=== PATIENT | female | born 1955 | race Caucasian/White ===

== ENCOUNTER 2023-10-02 13:45 | Outpatient (RCR) | payer MEDICARE, OTHER, SELFPAY ==
--- NOTE | 2023-06-11 19:21 | PT.OIE ---
Current Diagnoses Stiffness of unspecified hip, not elsewhere classified (06/11/23) Muscle weakness (generalized) (06/11/23) Stress incontinence (female) (male) (06/11/23) Rectocele (06/11/23) Visit Care Team Role Provider Type Colin Esposito MD Family Provider Non-Staff Primary Care Provider Specialty: Family Practice Address: [address] [place] [address], [phone] Email: Ghulam Florence MD Attending Provider Non-Staff Referring Provider Specialty: Medical Address: [address] [place] [address], [id number] Email: Physical Therapy Initial Evaluation PT-OP-A Visit Information Start: 06/05/23 17:53 Freq: Status: Active Protocol: Document 06/11/23 13:47 LRN (Rec: 06/11/23 14:46 LRN [id number]) Out-Patient Physical Therapy Visit Information Visit Information Visit Type Initial Evaluation Visit Start Time 13:47 Visit Stop Time 14:35 Visit Number 1 Evaluation Information Evaluation Date 06/11/23 Precautions Precautions Severe rectocele stage 4. Per intake form: R HETAL after Cystocele repair 15 yrs ago, 2019 Gall bladder removed, reported sporadic dizziness episodes and LOB w/o fall. PT-OP-B Current Condition Start: 06/05/23 17:53 Freq: Status: Active Protocol: Document 06/11/23 13:47 LRN (Rec: 06/11/23 14:46 LRN [id number]) Current Condition History of Current Condition Onset Date 6 months ago, History of Current Condition Has had urinary leakage for past 6 month that has worsened in the past 3 month. She thinks she may have been having cystocele, but was told she had a rectocele, not cystocele; therefore sent to therapy. She is being referred to gynocologist for rectal repair, referral appt 06/25/23. Prior Treatments and Tests Cystocele repair 15 yrs ago w/ hyste before that and R HETAL replacement afterward. Future Testing and Treatments Planned Feels her L hip needs a replacement but is getting rectocele addressed first. Treatment Goals Patient/Caregiver Goals Pt goal is to decrease rectocele, pt agreeable to HEP . Personal Factors Other Personal Factors That May Effect Having sporadic episodes of Therapy/Recovery dizziness and LOB. PT-OP-C Subjective Start: 06/05/23 17:53 Freq: Status: Active Protocol: Document 06/11/23 13:47 LRN (Rec: 06/11/23 14:46 LRN [id number]) Patient Questionnaires Pelvic Pain and Urgency/Frequency Patient Symptom Scale Pelvic Pain Score 12 PT-OP-I Pelvic Floor Start: 06/05/23 17:53 Freq: Status: Active Protocol: Document 06/11/23 13:47 LRN (Rec: 06/11/23 14:46 LRN [id number]) Pelvic Floor Assessment Urine Urinary Symptoms Prolapse,Falling Out Feeling/ Heavy Other Urinary Symptoms Urologist told her she was not completely emptying. Leakage Size Large Leakage Cause Urge Other Leakage Causes Walking to bathroom and leakage while sleeping Voiding Frequency 3x in AM, 3-4x in PM Nocturia 2-3 Pads Used In 24 Hours 1 daytime, 1 nighttime. Urine Pad Type Panty Liner Bowel Bowel Symptoms Constipation Bowel Movement Frequency 1 [place] Stool Chart Comments Variable stool types. Prolapse Rectocele Grade 4 Prolapse Comments Pt rectocele bulging out ~5 cm from vaginal opening. Comments Pelvic Floor Comments Not able to assess PF contractibility and strength due to severity of cystocele. Further bulging with each PF contraction while on a wedge. PT-OP-J Posture/Palpation/Skin Start: 06/05/23 17:53 Freq: Status: Active Protocol: Document 06/11/23 13:47 LRN (Rec: 06/11/23 14:46 LRN [id number]) Posture Evaluation Position Standing T-Spine Posture Increased Kyphosis L-Spine Posture Decreased Lordosis Shoulder Posture (L) Elevated Ankle/Foot Posture (L) Calcaneal Inversion,(L) Forefoot Abducted Comments Posture Comments C-curve of spine with apex on left. PT-OP-K Range of Motion Start: 06/05/23 17:53 Freq: Status: Active Protocol: Document 06/11/23 13:47 LRN (Rec: 06/11/23 14:46 LRN [id number]) Lumbar Spine Range of Motion Lumbar Spine Active Degrees Testing Position Standing Flexion 80 Extension 3 Rotation Left 5 Rotation Right 10 Lateral Flexion Left 10 Lateral Flexion Right 7 Hip Goniometric Range of Motion Hip Right Passive Testing Position Supine Flexion w/Knee Flexed 80 Abduction 18 Internal Rotation 15 External Rotation 25 Comments R HETAL side Left Passive Testing Position Supine Flexion w/Knee Flexed 90 Abduction 10 Internal Rotation 0 External Rotation 45 PT-OP-M Strength Start: 06/05/23 17:53 Freq: Status: Active Protocol: Document 06/11/23 13:47 LRN (Rec: 06/11/23 14:46 LRN [id number]) Trunk Strength Trunk Manual Muscle Testing Core Stabilization 4/5 Hip Strength Hip Manual Muscle Testing Right Flexion (L2) 2+ Poor+ External Rotation 3 Fair Internal Rotation 4 Good Left Flexion (L2) 3- Fair- Internal Rotation 4 Good PT-OP-Q Treatments Start: 06/05/23 17:53 Freq: Status: Active Protocol: Document 06/11/23 13:47 LRN (Rec: 06/11/23 14:46 LRN [id number]) Self-Care/Home Management Treatment Education Patient Education Home Exercise Program Other Education -Discussed results of evaluation, goals, and plan of care (POC) with pt, discussed attendance/cx/dns policy; pt agreeable to goals, attendance /cx/dns policy and POC. -With mirror, educated pt in physical positioning of rectocele with pt on wedge and after rectocele pushed back into vaginal canal leaving ~ 2 cm bulging beyond hymen location. -With mirror, educated pt rectocele bulging with increase in core pressure ( cough, PF contraction). -I/S pt in light cough to minimize rectocele bulge. -Verbal education for pt to not push with BM's but to breath through BM and if possible splint through vaginal canal with clean fingers if bulge not severe. -Discussed options for helping to limit rectocele with use of femme jock while waiting for appt for rectocele repair. Activities Self-Care/Home Management Activities -I/S pt in gentle PF contraction with hips elevated and to monitor for bulge. -Issued HEP: Kegel long hold with hips on pillows. PT-OP-T Assessment and Plan Start: 06/05/23 17:53 Freq: Status: Active Protocol: Document 06/11/23 13:47 LRN (Rec: 06/11/23 14:46 LRN [id number]) Physical Therapy Assessment Rehab Potential Rehabilitation Potential Poor Evaluation Complexity Number of Personal Factors/Comorbidities 1-2 Number of Body Systems Impaired 4 or More Clinical Presentation at Evaluation Evolving Impairments Impairments Coordination,Posture,ROM,Soft Tissue Mobility,Strength, Transfers Goals Three Impairment Weak Posterior PF muscles affecting urinary leakage. Impairment srengthen muscles that are there to contol leakage. Short Term Goal (STG) PF will gain awareness of posterior PF weakness and positions to limiting bulging of rectocele. STG Duration 2 wks-06/23/23 Two Impairment Increased urinary leakage. Short Term Goal (STG) Pt will be educated in vulvar/ genital care. STG Duration 1 wk-06/19/23 [place] Goal (LTG) Pt will be aware of voiding frequency and fluid input/ outputs to decrease worsening of urinary leakage. LTG Duration 8 wks-08/08/23 One Impairment Pt lacks appropriate self care HEP. Short Term Goal (STG) Education in proper methods for transfer with coordination of breathing, PF contractions . STG Duration 1 wk-06/19/23 [place] Hand Goal (LTG) Pt will be independent with a self care HEP of PF strengthening and hip ROM exercises. LTG Duration 8 wks-08/08/23 Assessment Summary Assessment Pt is a 67 yo female who presents with severe rectocele , grade 4. Not able to draw rectocele back into vaginal canal with positioning of wedge. Pt demonstrates greater bulging with cough and PF contractions due to increased core pressure management. The pt is also shows notable asymmetry of hip mobility and breath holding tactics for transfers. She also is reporting pushing to have bowel movements, probably worsening her rectocele. The pt will need surgical consult and has appointment at , reportedly 06/25/23. The pt will benefit from skilled physical therapy to teach her core pressure management with Kegels, transfers, daily activities, coughing/sneezing/ lifting and with daily ADLs. The pt could also benefit from hip mobility ad postural training. Physical Therapy Plan Frequency and Duration Frequency of Treatment 2x/Week Duration of treatment (weeks) 8 Plan of Care Start Date 06/11/23 Plan of Care End Date 08/08/23 Therapeutic Interventions Therapeutic Interventions Home Exercise Program,Manual Therapy,Self-Care/Home Management,Soft Tissue Mobilization,Therapeutic Activities,Therapeutic Exercises Next Visit Focus/Plan Next Note Type Treatment Note Next Visit Plan 1-2x/wk until 06/24/23 ( appt ). Discuss continuation until surgical date. Pt education and discussion of how to have Bowel movements without valsa maneuver and discuss squatty potty. Discuss norms for fluids to minimize onset of constipation . Pt education proper vulvar and perineal care with handout issued. Pt education and discussion in Urinary urge technique with handout and discuss positioning (sup/standing) for changing severity of rectocele. PF strengthening on wedge.
--- NOTE | 2023-06-11 19:21 | PT.OPPOC ---
Physical, Occupational & Speech Therapy At [facility] Current Diagnoses Stiffness of unspecified hip, not elsewhere classified (06/11/23) Muscle weakness (generalized) (06/11/23) Stress incontinence (female) (male) (06/11/23) Rectocele (06/11/23) Visit Care Team Role Provider Type Colin Esposito MD Family Provider Non-Staff Primary Care Provider Specialty: Family Practice Address: [address] [place] [address], [id number] Email: Ghulam Florence MD Attending Provider Non-Staff Referring Provider Specialty: Medical Address: [address] [place] [address], [id number] Email: Plan Of Care PT-OP-T Assessment and Plan Start: 06/05/23 17:53 Freq: Status: Active Protocol: Document 06/11/23 13:47 LRN (Rec: 06/11/23 14:46 LRN [id number]) Physical Therapy Assessment Rehab Potential Rehabilitation Potential Poor Evaluation Complexity Number of Personal Factors/Comorbidities 1-2 Number of Body Systems Impaired 4 or More Clinical Presentation at Evaluation Evolving Impairments Impairments Coordination,Posture,ROM,Soft Tissue Mobility,Strength, Transfers Goals Three Impairment Weak Posterior PF muscles affecting urinary leakage. Impairment srengthen muscles that are there to contol leakage. Short Term Goal (STG) PF will gain awareness of posterior PF weakness and positions to limiting bulging of rectocele. STG Duration 2 wks-06/23/23 Two Impairment Increased urinary leakage. Short Term Goal (STG) Pt will be educated in vulvar/ genital care. STG Duration 1 wk-06/19/23 [place] Steep Tender Goal (LTG) Pt will be aware of voiding frequency and fluid input/ outputs to decrease worsening of urinary leakage. LTG Duration 8 wks-08/08/23 One Impairment Pt lacks appropriate self care HEP. Short Term Goal (STG) Education in proper methods for transfer with coordination of breathing, PF contractions . STG Duration 1 wk-06/19/23 Skilled Nursing Goal (LTG) Pt will be independent with a self care HEP of PF strengthening and hip ROM exercises. LTG Duration 8 wks-08/08/23 Assessment Summary Assessment Pt is a 67 yo female who presents with severe rectocele , grade 4. Not able to draw rectocele back into vaginal canal with positioning of wedge. Pt demonstrates greater bulging with cough and PF contractions due to increased core pressure management. The pt is also shows notable asymmetry of hip mobility and breath holding tactics for transfers. She also is reporting pushing to have bowel movements, probably worsening her rectocele. The pt will need surgical consult and has appointment at , reportedly 06/25/23. The pt will benefit from skilled physical therapy to teach her core pressure management with Kegels, transfers, daily activities, coughing/sneezing/ lifting and with daily ADLs. The pt could also benefit from hip mobility ad postural training. Physical Therapy Plan Frequency and Duration Frequency of Treatment 2x/Week Duration of treatment (weeks) 8 Plan of Care Start Date 06/11/23 Plan of Care End Date 08/08/23 Therapeutic Interventions Therapeutic Interventions Home Exercise Program,Manual Therapy,Self-Care/Home Management,Soft Tissue Mobilization,Therapeutic Activities,Therapeutic Exercises Next Visit Focus/Plan Next Note Type Treatment Note Next Visit Plan 1-2x/wk until 06/24/23 ( appt ). Discuss continuation until surgical date. Pt education and discussion of how to have Bowel movements without valsa maneuver and discuss squatty potty. Discuss norms for fluids to minimize onset of constipation . Pt education proper vulvar and perineal care with handout issued. Pt education and discussion in Urinary urge technique with handout and discuss positioning (sup/standing) for changing severity of rectocele. PF strengthening on wedge. Plan of Care Dates Plan of Care Start Date 06/11/23 Plan of Care End Date 08/08/23 Electronically Signed by: Sarina Keenan, PT 06/11/231920 If you are in agreement with this Plan of Care, please return a signed and dated copy. I have reviewed this Plan of Care and certify that the skilled therapy services above are required to meet the patient?s needs. Physician Signature Date Printed Name and Credentials Clinical Instructor Signature Printed Name and Credentials
--- NOTE | 2023-06-18 15:13 | PT.OTN ---
Current Diagnoses Stiffness of unspecified hip, not elsewhere classified (06/18/23) Muscle weakness (generalized) (06/18/23) Stress incontinence (female) (male) (06/18/23) Rectocele (06/18/23) Physical Therapy Treatment Note PT-OP-A Visit Information Start: 06/05/23 17:53 Freq: Status: Active Protocol: Document 06/18/23 13:50 LRN (Rec: 06/18/23 15:12 LRN [id number]) Out-Patient Physical Therapy Visit Information Visit Information Visit Type Treatment Note Visit Start Time 13:50 Visit Stop Time 14:38 Visit Number 2 Evaluation Information Evaluation Date 06/11/23 Precautions Precautions Severe rectocele stage 4. Per intake form: R HETAL after Cystocele repair 15 yrs ago, 2019 Gall bladder removed, reported sporadic dizziness episodes and LOB w/o fall. PT-OP-B Current Condition Start: 06/05/23 17:53 Freq: Status: Active Protocol: Document 06/11/23 13:47 LRN (Rec: 06/11/23 14:46 LRN [id number]) Current Condition History of Current Condition Onset Date 6 months ago, History of Current Condition Has had urinary leakage for past 6 month that has worsened in the past 3 month. She thinks she may have been having cystocele, but was told she had a rectocele, not cystocele; therefore sent to therapy. She is being referred to gynocologist for rectal repair, referral appt 06/25/23. Prior Treatments and Tests Cystocele repair 15 yrs ago w/ hyste before that and R HETAL replacement afterward. Future Testing and Treatments Planned Feels her L hip needs a replacement but is getting rectocele addressed first. Treatment Goals Patient/Caregiver Goals Pt goal is to decrease rectocele, pt agreeable to HEP . Personal Factors Other Personal Factors That May Effect Having sporadic episodes of Therapy/Recovery dizziness and LOB. PT-OP-C Subjective Start: 06/05/23 17:53 Freq: Status: Active Protocol: Document 06/18/23 13:50 LRN (Rec: 06/18/23 15:12 LRN [id number]) OP-PT Subjective Patient Comments Patient Comments No changes. Ordered the femjock. States it doesn't feel it is too tight. PT-OP-I Pelvic Floor Start: 03/22/24 17:53 Freq: Status: Active Protocol: Document 06/11/23 13:47 LRN (Rec: 06/11/23 14:46 LRN [id number]) Pelvic Floor Assessment Urine Urinary Symptoms Prolapse,Falling Out Feeling/ Heavy Other Urinary Symptoms Urologist told her she was not completely emptying. Leakage Size Large Leakage Cause Urge Other Leakage Causes Walking to bathroom and leakage while sleeping Voiding Frequency 3x in AM, 3-4x in PM Nocturia 2-3 Pads Used In 24 Hours 1 daytime, 1 nighttime. Urine Pad Type Panty Liner Bowel Bowel Symptoms Constipation Bowel Movement Frequency 1 [place] Stool Chart Comments Variable stool types. Prolapse Rectocele Grade 4 Prolapse Comments Pt rectocele bulging out ~5 cm from vaginal opening. Comments Pelvic Floor Comments Not able to assess PF contractibility and strength due to severity of cystocele. Further bulging with each PF contraction while on a wedge. PT-OP-J Posture/Palpation/Skin Start: 06/05/23 17:53 Freq: Status: Active Protocol: Document 06/11/23 13:47 LRN (Rec: 06/11/23 14:46 LRN [id number]) Posture Evaluation Position Standing T-Spine Posture Increased Kyphosis L-Spine Posture Decreased Lordosis Shoulder Posture (L) Elevated Ankle/Foot Posture (L) Calcaneal Inversion,(L) Forefoot Abducted Comments Posture Comments C-curve of spine with apex on left. PT-OP-K Range of Motion Start: 06/05/23 17:53 Freq: Status: Active Protocol: Document 06/11/23 13:47 LRN (Rec: 06/11/23 14:46 LRN [id number]) Lumbar Spine Range of Motion Lumbar Spine Active Degrees Testing Position Standing Flexion 80 Extension 3 Rotation Left 5 Rotation Right 10 Lateral Flexion Left 10 Lateral Flexion Right 7 Hip Goniometric Range of Motion Hip Right Passive Testing Position Supine Flexion w/Knee Flexed 80 Abduction 18 Internal Rotation 15 External Rotation 25 Comments R HETAL side Left Passive Testing Position Supine Flexion w/Knee Flexed 90 Abduction 10 Internal Rotation 0 External Rotation 45 PT-OP-M Strength Start: 06/05/23 17:53 Freq: Status: Active Protocol: Document 06/11/23 13:47 LRN (Rec: 06/11/23 14:46 LRN [id number]) Trunk Strength Trunk Manual Muscle Testing Core Stabilization 4/5 Hip Strength Hip Manual Muscle Testing Right Flexion (L2) 2+ Poor+ External Rotation 3 Fair Internal Rotation 4 Good Left Flexion (L2) 3- Fair- Internal Rotation 4 Good PT-OP-Q Treatments Start: 06/05/23 17:53 Freq: Status: Active Protocol: Document 06/18/23 13:50 LRN (Rec: 06/18/23 15:12 LRN [id number]) Therapeutic Exercises Supine Exercises Wedge: Roll in-out/Kegel Reps/Minutes until rectocele bulged more, then stopped to rest/ reposition. Comments Cuing for Kegel with inhale and with inhale/exhale Wedge: Roll in/out Supine Exercise Name Legs straight & Hooklie w/TB - normal breath Reps/Minutes 5x, 10x respectively. Comments Better rectocele retract in hooklie w/TB. Cuing for w/ & w/o Kegel Wedge: Kegel/Glut squeeze Supine Exercise Name 10, 20, 30% effort with Kegel and glut squeeze Reps/Minutes 2-5x each Comments Reps depending on if PF bulging out or not, best with 30% effort. Wedge: Breathing Supine Exercise Name Deep breath, normal breath, chest breath. Reps/Minutes 5x each Comments Much cuing for PF lift with exhale and PF contract w/ inhale Wedge: Glut squeeze Reps/Minutes 2 SH x 10 Comments Cued after 100% effort to do 10%, 20%, then 30% effort Wedge: Kegel Supine Exercise Name Bowels moved 80% into vaginal canal. Reps/Minutes 8x Comments Cued for lift of PF Other Exercises Hooklie on Wedge Other Exercise Name Breathing training to coordinate PF normal contract/ relax Equipment Used Wedge Comments Pt awareness trng/cuing for PF lift with inhale, out w/ exhale Neuro Re-Education Treatment Coordination Activities Transfers coodinating w/breath & Kegel Details Transfers stand<>sit<>sidelie< >sup, coodinating w/breath & Kegel Reps/Duration 8' Comments V & Phys cuing throughout transfers for coordination of activity of breathing and Kegel. Self-Care/Home Management Treatment Education Other Education Discussed & educated pt in clothes to avoid (tight fitting around waist) and recommended pt try a dress to minimize intra-abdominal pressure and further pushing out on PF. PT-OP-T Assessment and Plan Start: 06/05/23 17:53 Freq: Status: Active Protocol: Document 06/18/23 13:50 LRN (Rec: 06/18/23 15:12 LRN [id number]) Physical Therapy Assessment Goals Three Impairment Weak Posterior PF muscles affecting urinary leakage. Impairment srengthen muscles that are there to contol leakage. Short Term Goal (STG) PF will gain awareness of posterior PF weakness and positions to limiting bulging of rectocele. 06/18/23: Educated pt in positions to limit rectocel bulging: not lift head or legs together, not hold breath and not tighten abs w/o tighening PF. STG Duration 2 wks-06/23/23 progressing 06/18/23 (PF weakness awareness needed) Two Impairment Increased urinary leakage. Short Term Goal (STG) Pt will be educated in vulvar/ genital care. STG Duration 1 wk-06/19/23 Longterm Goal (LTG) Pt will be aware of voiding frequency and fluid input/ outputs to decrease worsening of urinary leakage. LTG Duration 8 wks-08/08/23 One Impairment Pt lacks appropriate self care HEP. Short Term Goal (STG) Education in proper methods for transfer with coordination of breathing, PF contractions . 06/18/23: Pt educated in transfer with breath and Kegels. STG Duration 06/18/23: MET GOAL Longterm Goal (LTG) Pt will be independent with a self care HEP of PF strengthening and hip ROM exercises. 06/18/23: I/S pt Hips Elevated ex's of <100% effort kegel and Glut squeeze, and transfers coordinating Kegel/ breathe. LTG Duration 8 wks-08/08/23 progressed 07/07 Assessment Summary Assessment Pt is a 67 yo female with severe rectocele, grade 4. Not able to draw rectocele back into vaginal canal with positional posturing on wedge, but visible minute mvmt with breath and lift felt on wedge with mild glut squeeze and 20- 50% PF contraction. Min mvmt with LE roll in/outs (more with roll in>out). Belly breathing creates push out; therefore had pt chest breathe to control PF drop. Physical Therapy Plan Frequency and Duration Frequency of Treatment 2x/Week Duration of treatment (weeks) 8 Plan of Care Start Date 06/11/23 Plan of Care End Date 08/08/23 Next Visit Focus/Plan Next Note Type Treatment Note Next Visit Plan 1-2x/wk until 06/24/23 ( appt ). Next: Discuss continuation until surgical date. -Pt education proper vulvar and perineal care with handout issued. -Discuss norms for fluids to minimize onset of constipation. -Pt education and discussion in Urinary urge technique with handout and discuss positioning (sup/standing) for changing severity of rectocele. -Pt education and discussion of how to have Bowel movements without valsa maneuver and discuss squatty potty.
--- NOTE | 2023-07-02 16:42 | PT.OTN ---
Current Diagnoses Stiffness of unspecified hip, not elsewhere classified (07/02/23) Muscle weakness (generalized) (07/02/23) Stress incontinence (female) (male) (07/02/23) Rectocele (07/02/23) Physical Therapy Treatment Note PT-OP-A Visit Information Start: 06/05/23 17:53 Freq: Status: Active Protocol: Document 07/02/23 09:50 LRN (Rec: 07/02/23 10:34 LRN [id number]) Out-Patient Physical Therapy Visit Information Visit Information Visit Type Treatment Note Visit Start Time 09:50 Visit Stop Time 10:32 Visit Number 3 Evaluation Information Evaluation Date 06/11/23 Precautions Precautions Severe rectocele stage 4. Per intake form: R HETAL after Cystocele repair 15 yrs ago, 2019 Gall bladder removed, reported sporadic dizziness episodes and LOB w/o fall. PT-OP-B Current Condition Start: 06/05/23 17:53 Freq: Status: Active Protocol: Document 06/11/23 13:47 LRN (Rec: 06/11/23 14:46 LRN [id number]) Current Condition History of Current Condition Onset Date 6 months ago, History of Current Condition Has had urinary leakage for past 6 month that has worsened in the past 3 month. She thinks she may have been having cystocele, but was told she had a rectocele, not cystocele; therefore sent to therapy. She is being referred to gynocologist for rectal repair, referral appt 06/25/23. Prior Treatments and Tests Cystocele repair 15 yrs ago w/ hyste before that and R HETAL replacement afterward. Future Testing and Treatments Planned Feels her L hip needs a replacement but is getting rectocele addressed first. Treatment Goals Patient/Caregiver Goals Pt goal is to decrease rectocele, pt agreeable to HEP . Personal Factors Other Personal Factors That May Effect Having sporadic episodes of Therapy/Recovery dizziness and LOB. PT-OP-C Subjective Start: 06/05/23 17:53 Freq: Status: Active Protocol: Document 07/02/23 09:50 LRN (Rec: 07/02/23 10:34 LRN [id number]) OP-PT Subjective Patient Comments Patient Comments No changes. Saw OBGYN 06/25/23 . States she saw deteriation of cuff of bladder and that it might drop. Being referred to Urogen gynocologist that can do both. An appt is being set. PT-OP-I Pelvic Floor Start: 06/05/23 17:53 Freq: Status: Active Protocol: Document 06/11/23 13:47 LRN (Rec: 06/11/23 14:46 LRN [id number]) Pelvic Floor Assessment Urine Urinary Symptoms Prolapse,Falling Out Feeling/ Heavy Other Urinary Symptoms Urologist told her she was not completely emptying. Leakage Size Large Leakage Cause Urge Other Leakage Causes Walking to bathroom and leakage while sleeping Voiding Frequency 3x in AM, 3-4x in PM Nocturia 2-3 Pads Used In 24 Hours 1 daytime, 1 nighttime. Urine Pad Type Panty Liner Bowel Bowel Symptoms Constipation Bowel Movement Frequency 1 [place] Stool Chart Comments Variable stool types. Prolapse Rectocele Grade 4 Prolapse Comments Pt rectocele bulging out ~5 cm from vaginal opening. Comments Pelvic Floor Comments Not able to assess PF contractibility and strength due to severity of cystocele. Further bulging with each PF contraction while on a wedge. PT-OP-J Posture/Palpation/Skin Start: 06/05/23 17:53 Freq: Status: Active Protocol: Document 06/11/23 13:47 LRN (Rec: 06/11/23 14:46 LRN [id number]) Posture Evaluation Position Standing T-Spine Posture Increased Kyphosis L-Spine Posture Decreased Lordosis Shoulder Posture (L) Elevated Ankle/Foot Posture (L) Calcaneal Inversion,(L) Forefoot Abducted Comments Posture Comments C-curve of spine with apex on left. PT-OP-K Range of Motion Start: 06/05/23 17:53 Freq: Status: Active Protocol: Document 06/11/23 13:47 LRN (Rec: 06/11/23 14:46 LRN [id number]) Lumbar Spine Range of Motion Lumbar Spine Active Degrees Testing Position Standing Flexion 80 Extension 3 Rotation Left 5 Rotation Right 10 Lateral Flexion Left 10 Lateral Flexion Right 7 Hip Goniometric Range of Motion Hip Right Passive Testing Position Supine Flexion w/Knee Flexed 80 Abduction 18 Internal Rotation 15 External Rotation 25 Comments R HETAL side Left Passive Testing Position Supine Flexion w/Knee Flexed 90 Abduction 10 Internal Rotation 0 External Rotation 45 PT-OP-M Strength Start: 06/05/23 17:53 Freq: Status: Active Protocol: Document 06/11/23 13:47 LRN (Rec: 06/11/23 14:46 LRN [id number]) Trunk Strength Trunk Manual Muscle Testing Core Stabilization 4/5 Hip Strength Hip Manual Muscle Testing Right Flexion (L2) 2+ Poor+ External Rotation 3 Fair Internal Rotation 4 Good Left Flexion (L2) 3- Fair- Internal Rotation 4 Good PT-OP-Q Treatments Start: 06/05/23 17:53 Freq: Status: Active Protocol: Document 07/02/23 09:50 LRN (Rec: 07/02/23 10:34 LRN [id number]) Therapeutic Exercises Supine Exercises Wedge: Kegel/Glut squeeze Supine Exercise Name Kegel and glut squeeze Reps/Minutes 2-5x each Comments Full Kegel since Rectal tissues inside vaginal canal Wedge: Breathing Supine Exercise Name Normal breath in/out: w/Kegel 1x with Kegel 1x w/o Kegel Reps/Minutes 8' Comments Cuing for PF contract/lift with exhale and PF contract w/ inhale Therapeutic Activity Therapeutic Activity ADL activities Name ADLS w/breathwork/Kegel Comments Vacuuming, reaching into multi township assessor, picking things off floor & putting things into high cabinet. Neuro Re-Education Treatment Coordination Activities Transfers coodinating w/breath & Kegel Details Transfers stand<>sit<>sidelie< >sup, coodinating w/breath & Kegel Reps/Duration 8' Comments V & Phys cuing throughout transfers for coordination of activity of breathing and Kegel. Self-Care/Home Management Treatment Education Other Education Discussed pt recent diagnosis from OBGYN visit and implications for her therapy ex's for best outcome of surgery. Reviewed fit for Femme Jock with pt pulling up on posterior aspect and not placing over bladder area. Discussed and educated pt in specifics for completion of in use of Bladder Diary and I/S in tracking for 1 week. Activities Self-Care/Home Management Activities Issued Bladder diary. PT-OP-T Assessment and Plan Start: 06/05/23 17:53 Freq: Status: Active Protocol: Document 07/02/23 09:50 LRN (Rec: 07/02/23 10:34 N [id number]) Physical Therapy Assessment Goals Three Impairment Weak Posterior PF muscles affecting urinary leakage. Impairment strengthen muscles that are there to contol leakage. Short Term Goal (STG) PF will gain awareness of posterior PF weakness and positions to limiting bulging of rectocele. 06/18/23: Educated pt in positions to limit rectocel bulging: not lift head or legs together, not hold breath and not tighten abs w/o tighening PF. STG Duration 2 wks-06/23/23 progressing 06/18/23 (PF weakness awareness needed) Two Impairment Increased urinary leakage. Short Term Goal (STG) Pt will be educated in vulvar/ genital care. STG Duration 1 wk-06/19/23 Care Home Goal (LTG) Pt will be aware of voiding frequency and fluid input/ outputs to decrease worsening of urinary leakage. LTG Duration 8 wks-08/08/23 One Impairment Pt lacks appropriate self care HEP. Short Term Goal (STG) Education in proper methods for transfer with coordination of breathing, PF contractions . 06/18/23: Pt educated in transfer with breath and Kegels. STG Duration 06/18/23: MET GOAL Director Of Distance Learning Goal (LTG) Pt will be independent with a self care HEP of PF strengthening and hip ROM exercises. 06/18/23: I/S pt Hips Elevated ex's of <100% effort kegel and Glut squeeze, and transfers coordinating Kegel/ breathe. LTG Duration 8 wks-08/08/23 progressed 07/07 Assessment Summary Assessment Pt is a 67 yo female with severe rectocele, grade 4. Pt is willing to continue therapy until bladder and rectal surgery can be done. Today she attends with femme jock that appears to be helpful in holding up her rectal tissues, although still outside of vaginal canal. Supine on Wedge: rectal tissue did not bulge out of vagina as much as previously ( today ~3/4 inch extended past hymen location). I was able to moderately easy push rectal tissued back into vaginal canal and pt was able to perform Kegel w/o pushing tissue out., much improved. Physical Therapy Plan Frequency and Duration Frequency of Treatment 2x/Week Duration of treatment (weeks) 8 Plan of Care Start Date 06/11/23 Plan of Care End Date 08/08/23 Next Visit Focus/Plan Next Note Type Progress Note Next Visit Plan New POC next visit. Continue until surgery can be scheduled. -Pt education proper vulvar and perineal care with handout issued. -Discuss norms for fluids to minimize onset of constipation. -Discuss positioning (sup/ standing) for changing severity of rectocele. Pt education and discussion in Urinary urge technique with handout if beneficial. -Pt education and discussion of how to have Bowel movements without valsa maneuver and discuss squatty potty. -strengthen PF.
--- NOTE | 2023-07-16 13:49 | PT.OTN ---
Current Diagnoses Stiffness of unspecified hip, not elsewhere classified (07/16/23) Muscle weakness (generalized) (07/16/23) Stress incontinence (female) (male) (07/16/23) Rectocele (07/16/23) Physical Therapy Treatment Note PT-OP-A Visit Information Start: 06/05/23 17:53 Freq: Status: Active Protocol: Document 07/16/23 09:50 LRN (Rec: 07/16/23 10:33 LRN [id number]) Out-Patient Physical Therapy Visit Information Visit Information Visit Type Treatment Note Visit Start Time 09:50 Visit Stop Time 10:29 Visit Number 4 Evaluation Information Evaluation Date 06/11/23 Precautions Precautions Severe rectocele stage 4. Per intake form: R HETAL after Cystocele repair 15 yrs ago, 2019 Gall bladder removed, reported sporadic dizziness episodes and LOB w/o fall. PT-OP-B Current Condition Start: 06/05/23 17:53 Freq: Status: Active Protocol: Document 06/11/23 13:47 LRN (Rec: 06/11/23 14:46 LRN [id number]) Current Condition History of Current Condition Onset Date 6 months ago, History of Current Condition Has had urinary leakage for past 6 month that has worsened in the past 3 month. She thinks she may have been having cystocele, but was told she had a rectocele, not cystocele; therefore sent to therapy. She is being referred to gynocologist for rectal repair, referral appt 06/25/23. Prior Treatments and Tests Cystocele repair 15 yrs ago w/ hyste before that and R HETAL replacement afterward. Future Testing and Treatments Planned Feels her L hip needs a replacement but is getting rectocele addressed first. Treatment Goals Patient/Caregiver Goals Pt goal is to decrease rectocele, pt agreeable to HEP . Personal Factors Other Personal Factors That May Effect Having sporadic episodes of Therapy/Recovery dizziness and LOB. PT-OP-C Subjective Start: 06/05/23 17:53 Freq: Status: Active Protocol: Document 07/16/23 09:50 LRN (Rec: 07/16/23 10:33 LRN [id number]) OP-PT Subjective Patient Comments Patient Comments Just got back from vacation yesterday and was on plane all day. States only 1 day felt constipated but didn't push to have BM. States she felt her bladder more because not able to lie down daily. PT-OP-I Pelvic Floor Start: 06/05/23 17:53 Freq: Status: Active Protocol: Document 06/11/23 13:47 LRN (Rec: 06/11/23 14:46 LRN [id number]) Pelvic Floor Assessment Urine Urinary Symptoms Prolapse,Falling Out Feeling/ Heavy Other Urinary Symptoms Urologist told her she was not completely emptying. Leakage Size Large Leakage Cause Urge Other Leakage Causes Walking to bathroom and leakage while sleeping Voiding Frequency 3x in AM, 3-4x in PM Nocturia 2-3 Pads Used In 24 Hours 1 daytime, 1 nighttime. Urine Pad Type Panty Liner Bowel Bowel Symptoms Constipation Bowel Movement Frequency 1 [place] Stool Chart Comments Variable stool types. Prolapse Rectocele Grade 4 Prolapse Comments Pt rectocele bulging out ~5 cm from vaginal opening. Comments Pelvic Floor Comments Not able to assess PF contractibility and strength due to severity of cystocele. Further bulging with each PF contraction while on a wedge. PT-OP-J Posture/Palpation/Skin Start: 06/05/23 17:53 Freq: Status: Active Protocol: Document 06/11/23 13:47 LRN (Rec: 06/11/23 14:46 LRN [id number]) Posture Evaluation Position Standing T-Spine Posture Increased Kyphosis L-Spine Posture Decreased Lordosis Shoulder Posture (L) Elevated Ankle/Foot Posture (L) Calcaneal Inversion,(L) Forefoot Abducted Comments Posture Comments C-curve of spine with apex on left. PT-OP-K Range of Motion Start: 06/05/23 17:53 Freq: Status: Active Protocol: Document 06/11/23 13:47 LRN (Rec: 06/11/23 14:46 LRN [id number]) Lumbar Spine Range of Motion Lumbar Spine Active Degrees Testing Position Standing Flexion 80 Extension 3 Rotation Left 5 Rotation Right 10 Lateral Flexion Left 10 Lateral Flexion Right 7 Hip Goniometric Range of Motion Hip Right Passive Testing Position Supine Flexion w/Knee Flexed 80 Abduction 18 Internal Rotation 15 External Rotation 25 Comments R HETAL side Left Passive Testing Position Supine Flexion w/Knee Flexed 90 Abduction 10 Internal Rotation 0 External Rotation 45 PT-OP-M Strength Start: 06/05/23 17:53 Freq: Status: Active Protocol: Document 06/11/23 13:47 LRN (Rec: 06/11/23 14:46 LRN [id number]) Trunk Strength Trunk Manual Muscle Testing Core Stabilization 4/5 Hip Strength Hip Manual Muscle Testing Right Flexion (L2) 2+ Poor+ External Rotation 3 Fair Internal Rotation 4 Good Left Flexion (L2) 3- Fair- Internal Rotation 4 Good PT-OP-Q Treatments Start: 06/05/23 17:53 Freq: Status: Active Protocol: Document 07/16/23 09:50 LRN (Rec: 07/16/23 10:33 N [id number]) Therapeutic Exercises Supine Exercises Wedge:Kegel/Bridge Supine Exercise Name Wedge: Kegel/Bridge/Exhale w/ lift at start & end of treatment Reps/Minutes 9' Wedge: Roll in-out/Kegel Supine Exercise Name Wedge: Kegel/roll in-out/ normal breaths Equipment Used Wedge Reps/Minutes 8' Comments Cued on breathing based on bulge of rectal tissues. Wedge: Kegel/Glut squeeze Supine Exercise Name Kegel w/Bridge/Glut Squeeze Equipment Used Wedge, pt had to rest x 1 due to LB/LE cramp Reps/Minutes 8' Comments Xtra time: Kegel w/Rectal tissues inside vaginal canal, occasional held in Wedge: Breathing Supine Exercise Name Wedge/Deep breath w/Kegel f/b > 3 normal breaths w/PF relax Equipment Used Wedge Reps/Minutes 8' Comments Extra time for set up and repositioning of rectal tissues Therapeutic Activity Therapeutic Activity Transfer training Name Log roll Sit<>Supine with Kegel/breath Reps/Minutes 6' Comments Phys & v cuing needed at start & end of therapy. PT-OP-T Assessment and Plan Start: 06/05/23 17:53 Freq: Status: Active Protocol: Document 07/16/23 09:50 LRN (Rec: 07/16/23 10:33 N [id number]) Physical Therapy Assessment Goals Three Impairment Weak Posterior PF muscles affecting urinary leakage. Impairment strengthen muscles that are there to contol leakage. Short Term Goal (STG) PF will gain awareness of posterior PF weakness and positions to limiting bulging of rectocele. 06/18/23: Educated pt in positions to limit rectocel bulging: not lift head or legs together, not hold breath and not tighten abs w/o tighening PF. STG Duration 2 wks-06/23/23 progressing 06/18/23 (PF weakness awareness needed) Two Impairment Increased urinary leakage. Short Term Goal (STG) Pt will be educated in vulvar/ genital care. STG Duration 1 wk-06/19/23 Penitentiary Goal (LTG) Pt will be aware of voiding frequency and fluid input/ outputs to decrease worsening of urinary leakage. LTG Duration 8 wks-08/08/23 One Impairment Pt lacks appropriate self care HEP. Short Term Goal (STG) Education in proper methods for transfer with coordination of breathing, PF contractions . 06/18/23: Pt educated in transfer with breath and Kegels. STG Duration 06/18/23: MET GOAL Penitentiary Goal (LTG) Pt will be independent with a self care HEP of PF strengthening and hip ROM exercises. 06/18/23: I/S pt Hips Elevated ex's of <100% effort kegel and Glut squeeze, and transfers coordinating Kegel/ breathe. LTG Duration 8 wks-08/08/23 progressed 07/07 Assessment Summary Assessment Pt is a 67 yo female with severe rectocele, grade 4. Pt is willing to continue therapy until bladder and rectal surgery can be done. Today she returns from a 2 wk vacation with visible severe rectocele of internal bulging tissue being dry and irritated due to traveling and using menstrual liner and reduction in estrogen creme to 2x/week ( previously was daily). Pt was able to mostly keep her rectocele retracted when on wedge and initial assist to reposition rectocele inward. Pt to call MD to request something for her to use daily to hydrate tissue that have been sitting on menstral liner . Pt also to use bladder pad that had been less irritating to her tissues. After vacation pt rectocele is worse than her last visit, but better overall. Pt has not heard back from surgeon in [facility] so is not sure when she will be having surgery; therefore will hold on new POC . Physical Therapy Plan Frequency and Duration Frequency of Treatment 2x/Week Duration of treatment (weeks) 8 Plan of Care Start Date 06/11/23 Plan of Care End Date 08/08/23 Next Visit Focus/Plan Next Note Type Treatment Note Next Visit Plan Continue until surgery can be scheduled. -HEP: Mat hip AD stretch, R HETAL hip ER stretch, L hip IR stretch to improve symmetry in hip mobility. Hip general strengthening. -Pt education proper vulvar and perineal care with handout issued. -Discuss norms for fluids to minimize onset of constipation. -Discuss positioning (sup/ standing) for changing severity of rectocele. Pt education and discussion in Urinary urge technique with handout if beneficial. -Pt education and discussion of how to have Bowel movements without valsa maneuver and discuss squatty potty. -strengthen PF.
--- NOTE | 2023-07-23 14:22 | PT.OTN ---
Current Diagnoses Stiffness of unspecified hip, not elsewhere classified (07/23/23) Muscle weakness (generalized) (07/23/23) Stress incontinence (female) (male) (07/23/23) Rectocele (07/23/23) Physical Therapy Treatment Note PT-OP-A Visit Information Start: 06/05/23 17:53 Freq: Status: Active Protocol: Document 07/23/23 09:47 LRN (Rec: 07/23/23 10:31 LRN [id number]) Out-Patient Physical Therapy Visit Information Visit Information Visit Type Treatment Note Visit Note 07/31/23: surgeon appt Visit Start Time 09:47 Visit Stop Time 10:30 Visit Number 5 Evaluation Information Evaluation Date 06/11/23 Precautions Precautions Severe rectocele stage 4. Per intake form: R HETAL after Cystocele repair 15 yrs ago, 2019 Gall bladder removed, reported sporadic dizziness episodes and LOB w/o fall. PT-OP-B Current Condition Start: 06/05/23 17:53 Freq: Status: Active Protocol: Document 06/11/23 13:47 LRN (Rec: 06/11/23 14:46 LRN [id number]) Current Condition History of Current Condition Onset Date 6 months ago, History of Current Condition Has had urinary leakage for past 6 month that has worsened in the past 3 month. She thinks she may have been having cystocele, but was told she had a rectocele, not cystocele; therefore sent to therapy. She is being referred to gynocologist for rectal repair, referral appt 06/25/23. Prior Treatments and Tests Cystocele repair 15 yrs ago w/ hyste before that and R HETAL replacement afterward. Future Testing and Treatments Planned Feels her L hip needs a replacement but is getting rectocele addressed first. Treatment Goals Patient/Caregiver Goals Pt goal is to decrease rectocele, pt agreeable to HEP . Personal Factors Other Personal Factors That May Effect Having sporadic episodes of Therapy/Recovery dizziness and LOB. PT-OP-C Subjective Start: 06/05/23 17:53 Freq: Status: Active Protocol: Document 07/23/23 09:47 LRN (Rec: 07/23/23 10:31 LRN [id number]) OP-PT Subjective Patient Comments Patient Comments States she did not call the physician to ask for cream for her internal vaginal tissues. 07/31/23 scheduled to see MD for surgery. PT-OP-I Pelvic Floor Start: 06/05/23 17:53 Freq: Status: Active Protocol: Document 06/11/23 13:47 LRN (Rec: 06/11/23 14:46 LRN [id number]) Pelvic Floor Assessment Urine Urinary Symptoms Prolapse,Falling Out Feeling/ Heavy Other Urinary Symptoms Urologist told her she was not completely emptying. Leakage Size Large Leakage Cause Urge Other Leakage Causes Walking to bathroom and leakage while sleeping Voiding Frequency 3x in AM, 3-4x in PM Nocturia 2-3 Pads Used In 24 Hours 1 daytime, 1 nighttime. Urine Pad Type Panty Liner Bowel Bowel Symptoms Constipation Bowel Movement Frequency 1 [place] Stool Chart Comments Variable stool types. Prolapse Rectocele Grade 4 Prolapse Comments Pt rectocele bulging out ~5 cm from vaginal opening. Comments Pelvic Floor Comments Not able to assess PF contractibility and strength due to severity of cystocele. Further bulging with each PF contraction while on a wedge. PT-OP-J Posture/Palpation/Skin Start: 06/05/23 17:53 Freq: Status: Active Protocol: Document 06/11/23 13:47 LRN (Rec: 06/11/23 14:46 LRN [id number]) Posture Evaluation Position Standing T-Spine Posture Increased Kyphosis L-Spine Posture Decreased Lordosis Shoulder Posture (L) Elevated Ankle/Foot Posture (L) Calcaneal Inversion,(L) Forefoot Abducted Comments Posture Comments C-curve of spine with apex on left. PT-OP-K Range of Motion Start: 06/05/23 17:53 Freq: Status: Active Protocol: Document 06/11/23 13:47 LRN (Rec: 06/11/23 14:46 LRN [id number]) Lumbar Spine Range of Motion Lumbar Spine Active Degrees Testing Position Standing Flexion 80 Extension 3 Rotation Left 5 Rotation Right 10 Lateral Flexion Left 10 Lateral Flexion Right 7 Hip Goniometric Range of Motion Hip Right Passive Testing Position Supine Flexion w/Knee Flexed 80 Abduction 18 Internal Rotation 15 External Rotation 25 Comments R HETAL side Left Passive Testing Position Supine Flexion w/Knee Flexed 90 Abduction 10 Internal Rotation 0 External Rotation 45 PT-OP-M Strength Start: 06/05/23 17:53 Freq: Status: Active Protocol: Document 06/11/23 13:47 LRN (Rec: 06/11/23 14:46 LRN [id number]) Trunk Strength Trunk Manual Muscle Testing Core Stabilization 4/5 Hip Strength Hip Manual Muscle Testing Right Flexion (L2) 2+ Poor+ External Rotation 3 Fair Internal Rotation 4 Good Left Flexion (L2) 3- Fair- Internal Rotation 4 Good PT-OP-Q Treatments Start: 06/05/23 17:53 Freq: Status: Active Protocol: Document 07/23/23 09:47 LRN (Rec: 07/23/23 10:31 N [id number]) Therapeutic Exercises Supine Exercises Wedge: Kegel/Ball squeeze Supine Exercise Name Wedge: Kegel/ball squeeze Equipment Used Wedge Reps/Minutes 6' Comments Cued on breathing based on bulge of rectal tissues. Wedge: Roll in/out Supine Exercise Name Ending on wedge: Legs [place] - normal breath Reps/Minutes 5' Comments Better rectocele retract in hooklie w/TB. Cuing for w/ & w/o Kegel Wedge: Kegel/Glut squeeze Supine Exercise Name Kegel w/Bridge/Roll out Glut Squeeze Equipment Used Wedge, Lev 1 TB Reps/Minutes 6' Comments Xtra time: Kegel w/Rectal tissues inside vaginal canal, occasional held in Wedge: Breathing Supine Exercise Name Wedge/Deep breath w/Kegel f/b > 3 normal breaths w/PF relax Equipment Used Wedge Reps/Minutes 2' Comments Extra time for set up and repositioning of rectal tissues Other Exercises Child's Pose Other Exercise Name Exhale rock back towards feet, inhale-belly drop, exhale tighten PF, inhale Resistance last inhale PF tight, then extend upper T/S Comments Pt cued to keep head in neutral. Therapeutic Activity Therapeutic Activity Transfer training Name Log roll Sit<>Supine with Kegel/breath Reps/Minutes 8' Comments Phys & v cuing needed. ' Training performed thoughout therapy. Self-Care/Home Management Treatment Education Patient Education Home Exercise Program Activities Self-Care/Home Management Activities HEP issued: Modified Child's pose. PT-OP-T Assessment and Plan Start: 06/05/23 17:53 Freq: Status: Active Protocol: Document 07/23/23 09:47 LRN (Rec: 07/23/23 10:31 [facility] [id number]) Physical Therapy Assessment Goals Three Impairment Weak Posterior PF muscles affecting urinary leakage. Impairment strengthen muscles that are there to contol leakage. Short Term Goal (STG) PF will gain awareness of posterior PF weakness and positions to limiting bulging of rectocele. 06/18/23: Educated pt in positions to limit rectocele bulging: not lift head or legs together, not hold breath and not tighten abs w/o tighening PF. STG Duration 2 wks-06/23/23 progressing 06/18/23 (PF weakness awareness needed) Two Impairment Increased urinary leakage. Short Term Goal (STG) Pt will be educated in vulvar/ genital care. STG Duration 1 wk-06/19/23 Skilled Nursing Goal (LTG) Pt will be aware of voiding frequency and fluid input/ outputs to decrease worsening of urinary leakage. LTG Duration 8 wks-08/08/23 One Impairment Pt lacks appropriate self care HEP. Short Term Goal (STG) Education in proper methods for transfer with coordination of breathing, PF contractions . 06/18/23: Pt educated in transfer with breath and Kegels. STG Duration 06/18/23: MET GOAL [employer] Goal (LTG) Pt will be independent with a self care HEP of PF strengthening and hip ROM exercises. 06/18/23: I/S pt Hips Elevated ex's of <100% effort kegel and Glut squeeze, and transfers coordinating Kegel/ breathe. LTG Duration 8 wks-08/08/23 progressed 07/07 Assessment Summary Assessment Pt is a 67 yo female with severe rectocele, grade 4. Pt is willing to continue therapy until bladder and rectal surgery can be done. Today her rectocele tissues appear deflated and past hymen but covered by her labia major/minora tissues, so pt is feeling very little bulging of her tissues. LB tightness is notable but child's pose positioning to get LB stretch if performed too many times worsens sensation of bulging; therefore pt told to only do 2 -4 times. 07/31/23 scheduled to see MD for surgery. Physical Therapy Plan Frequency and Duration Frequency of Treatment 2x/Week Duration of treatment (weeks) 8 Plan of Care Start Date 06/11/23 Plan of Care End Date 08/08/23 Next Visit Focus/Plan Next Note Type Treatment Note Next Visit Plan Continue until surgery can be scheduled. -Pt education proper vulvar and perineal care with handout issued. -HEP: Issue Mat hip AD stretch, R HETAL hip ER stretch, L hip IR stretch to improve symmetry in hip mobility. Hip general strengthening. I/S in standing LB or supine LB stretch. -Pt education and discussion in Urinary urge technique with handout if beneficial. -Pt education and discussion of how to have Bowel movements without valsa maneuver and discuss squatty potty. -strengthen PF. -Discuss norms for fluids to minimize onset of constipation . -Discuss positioning (sup/ standing) for changing severity of rectocele.
--- NOTE | 2023-07-30 15:47 | PT.OTN ---
Current Diagnoses Stiffness of unspecified hip, not elsewhere classified (07/30/23) Muscle weakness (generalized) (07/30/23) Stress incontinence (female) (male) (07/30/23) Rectocele (07/30/23) Physical Therapy Treatment Note PT-OP-A Visit Information Start: 06/05/23 17:53 Freq: Status: Active Protocol: Document 07/30/23 14:35 LRN (Rec: 07/30/23 15:46 LRN [id number]) Out-Patient Physical Therapy Visit Information Visit Information Visit Type Treatment Note Visit Note 07/31/23: surgeon appt Visit Start Time 14:35 Visit Stop Time 15:18 Visit Number 6 Evaluation Information Evaluation Date 06/11/23 Precautions Precautions Severe rectocele stage 4. Per intake form: R HETAL after Cystocele repair 15 yrs ago, 2019 Gall bladder removed, reported sporadic dizziness episodes and LOB w/o fall. PT-OP-B Current Condition Start: 06/05/23 17:53 Freq: Status: Active Protocol: Document 06/11/23 13:47 LRN (Rec: 06/11/23 14:46 LRN [id number]) Current Condition History of Current Condition Onset Date 6 months ago, History of Current Condition Has had urinary leakage for past 6 month that has worsened in the past 3 month. She thinks she may have been having cystocele, but was told she had a rectocele, not cystocele; therefore sent to therapy. She is being referred to gynocologist for rectal repair, referral appt 06/25/23. Prior Treatments and Tests Cystocele repair 15 yrs ago w/ hyste before that and R HETAL replacement afterward. Future Testing and Treatments Planned Feels her L hip needs a replacement but is getting rectocele addressed first. Treatment Goals Patient/Caregiver Goals Pt goal is to decrease rectocele, pt agreeable to HEP . Personal Factors Other Personal Factors That May Effect Having sporadic episodes of Therapy/Recovery dizziness and LOB. PT-OP-C Subjective Start: 06/05/23 17:53 Freq: Status: Active Protocol: Document 07/30/23 14:35 LRN (Rec: 07/30/23 15:46 LRN [id number]) OP-PT Subjective Patient Comments Patient Comments No changes. PT-OP-I Pelvic Floor Start: 06/05/23 17:53 Freq: Status: Active Protocol: Document 06/11/23 13:47 LRN (Rec: 06/11/23 14:46 LRN [id number]) Pelvic Floor Assessment Urine Urinary Symptoms Prolapse,Falling Out Feeling/ Heavy Other Urinary Symptoms Urologist told her she was not completely emptying. Leakage Size Large Leakage Cause Urge Other Leakage Causes Walking to bathroom and leakage while sleeping Voiding Frequency 3x in AM, 3-4x in PM Nocturia 2-3 Pads Used In 24 Hours 1 daytime, 1 nighttime. Urine Pad Type Panty Liner Bowel Bowel Symptoms Constipation Bowel Movement Frequency 1 [place] Stool Chart Comments Variable stool types. Prolapse Rectocele Grade 4 Prolapse Comments Pt rectocele bulging out ~5 cm from vaginal opening. Comments Pelvic Floor Comments Not able to assess PF contractibility and strength due to severity of cystocele. Further bulging with each PF contraction while on a wedge. PT-OP-J Posture/Palpation/Skin Start: 06/05/23 17:53 Freq: Status: Active Protocol: Document 06/11/23 13:47 LRN (Rec: 06/11/23 14:46 LRN [id number]) Posture Evaluation Position Standing T-Spine Posture Increased Kyphosis L-Spine Posture Decreased Lordosis Shoulder Posture (L) Elevated Ankle/Foot Posture (L) Calcaneal Inversion,(L) Forefoot Abducted Comments Posture Comments C-curve of spine with apex on left. PT-OP-K Range of Motion Start: 06/05/23 17:53 Freq: Status: Active Protocol: Document 06/11/23 13:47 LRN (Rec: 06/11/23 14:46 LRN [id number]) Lumbar Spine Range of Motion Lumbar Spine Active Degrees Testing Position Standing Flexion 80 Extension 3 Rotation Left 5 Rotation Right 10 Lateral Flexion Left 10 Lateral Flexion Right 7 Hip Goniometric Range of Motion Hip Right Passive Testing Position Supine Flexion w/Knee Flexed 80 Abduction 18 Internal Rotation 15 External Rotation 25 Comments R HETAL side Left Passive Testing Position Supine Flexion w/Knee Flexed 90 Abduction 10 Internal Rotation 0 External Rotation 45 PT-OP-M Strength Start: 06/05/23 17:53 Freq: Status: Active Protocol: Document 06/11/23 13:47 LRN (Rec: 06/11/23 14:46 LRN [id number]) Trunk Strength Trunk Manual Muscle Testing Core Stabilization 4/5 Hip Strength Hip Manual Muscle Testing Right Flexion (L2) 2+ Poor+ External Rotation 3 Fair Internal Rotation 4 Good Left Flexion (L2) 3- Fair- Internal Rotation 4 Good PT-OP-Q Treatments Start: 06/05/23 17:53 Freq: Status: Active Protocol: Document 07/30/23 14:35 LRN (Rec: 07/30/23 15:46 LRN [id number]) Therapeutic Exercises Supine Exercises Wedge: Kegel/Glut squeeze Supine Exercise Name Retraction rectal tissues via position & ex-w/& w/o gel on rectal tissues Reps/Minutes 15' Comments Gel improved ease of rectal tissue withdrawl to ~85% withdrawl Wedge: Breathing Supine Exercise Name Retraction of rectal tissue via positional posturing on wedge. Reps/Minutes 9' Comments 75% withdrawl into vaginal canal with positioning Therapeutic Activity Therapeutic Activity Dressing Name Donning underwear, fem jock and pants coordinating breathing with dressing. Reps/Minutes 3' Transfer training Name Lateral shift supine, Log roll Stand<>Sit<>Supine with Kegel /breath Reps/Minutes 10' Comments Phys & v cuing needed. ' Training performed thoughout therapy. ADL activities Name Discussion of coordination of breathwork with ADLs. Reps/Minutes 1' Self-Care/Home Management Treatment Education Other Education Pt education given during supine positioning on wedge as indicated above: Pt education proper vulvar and perineal care with handout issued. Pt education and discussion of how to have Bowel movements without valsa maneuver and discuss squatty potty. Discussed norms for fluids ( no more than 1/2 body wgt in oz) to minimize onset of constipation. Discussed positioning (sup/ standing) for changing severity of rectocele (bending over). PT-OP-T Assessment and Plan Start: 06/05/23 17:53 Freq: Status: Active Protocol: Document 07/30/23 14:35 LRN (Rec: 07/30/23 15:46 LRN [id number]) Physical Therapy Assessment Goals Three Impairment Weak Posterior PF muscles affecting urinary leakage. Impairment strengthen muscles that are there to contol leakage. Short Term Goal (STG) Pt will gain awareness of posterior PF weakness and positions to limiting bulging of rectocele. 06/18/23: Educated pt in positions to limit rectocele bulging: not lift head or legs together, not hold breath and not tighten abs w/o tighening PF. 07/30/23: Pt was able to identify when rectocele extended beyond her vaginal opening in standing. STG Duration 2 wks-06/23/23 (07/30/23: MET GOAL) Two Impairment Increased urinary leakage. Short Term Goal (STG) Pt will be educated in vulvar/ genital care. 07/30/23: Pt educated with handout issued. STG Duration 1 wk-06/19/23 (07/30/23: MET GOAL) Rn Invasive Goal (LTG) Pt will be aware of voiding frequency and fluid input/ outputs to decrease worsening of urinary leakage. 07/30/23: Pt educated in norms for voiding frequency and fluid input/output recommendations. LTG Duration 8 wks-08/08/23 (07/30/23: MET GOAL) One Impairment Pt lacks appropriate self care HEP. Short Term Goal (STG) Education in proper methods for transfer with coordination of breathing, PF contractions . 06/18/23: Pt educated in transfer with breath and Kegels. STG Duration 06/18/23: MET GOAL Rn Invasive Goal (LTG) Pt will be independent with a self care HEP of PF strengthening and hip ROM exercises. 06/18/23: I/S pt Hips Elevated ex's of <100% effort kegel and Glut squeeze, and transfers coordinating Kegel/ breathe. LTG Duration 8 wks-08/08/23 progressed 07/07 Assessment Summary Assessment Pt is a 67 yo female with severe rectocele, grade 4. Pt is willing to continue therapy until bladder and rectal surgery can be done. Today pt rectal tissues appear 5-5.5 cm beyond vaginal entry with 2 areas of small tissue abrasion visible at ~2 and 11 of PF clock direction. Rectraction of rectal tissues were ~75% achieved with positioning of elevated hips for 25 minutes, and with coordination of breath it appeared the tissues minimally moved in/out with breath. Bulging occured as pt lifted legs, hips or head. Surgury recommended. Physical Therapy Plan Frequency and Duration Frequency of Treatment 2x/Week Duration of treatment (weeks) 8 Plan of Care Start Date 06/11/23 Plan of Care End Date 08/08/23 Next Visit Focus/Plan Next Note Type Treatment Note Next Visit Plan Continue until surgery can be scheduled. -HEP: Issue Mat hip AD stretch, R HETAL hip ER stretch, L hip IR stretch to improve symmetry in hip mobility. Hip general strengthening w/core pressure mgmt. I/S in standing LB or supine LB stretch (to minimize bulge of rectocele). -Pt education and discussion in Urinary urge technique with handout if beneficial. -strengthen PF.
--- NOTE | 2023-08-03 16:08 | PT.OTN ---
Current Diagnoses Stiffness of unspecified hip, not elsewhere classified (08/03/23) Muscle weakness (generalized) (08/03/23) Stress incontinence (female) (male) (08/03/23) Rectocele (08/03/23) Physical Therapy Treatment Note PT-OP-A Visit Information Start: 06/05/23 17:53 Freq: Status: Active Protocol: Document 08/03/23 13:55 LRN (Rec: 08/03/23 16:08 LRN [id number]) Out-Patient Physical Therapy Visit Information Visit Information Visit Type Progress Note Visit Note 07/31/23: surgeon appt Visit Start Time 13:55 Visit Stop Time 14:35 Visit Number 7 Evaluation Information Evaluation Date 06/11/23 Precautions Precautions Severe rectocele stage 4. Per intake form: R HETAL after Cystocele repair 15 yrs ago, 2019 Gall bladder removed, reported sporadic dizziness episodes and LOB w/o fall. PT-OP-B Current Condition Start: 06/05/23 17:53 Freq: Status: Active Protocol: Document 06/11/23 13:47 LRN (Rec: 06/11/23 14:46 LRN [id number]) Current Condition History of Current Condition Onset Date 6 months ago, History of Current Condition Has had urinary leakage for past 6 month that has worsened in the past 3 month. She thinks she may have been having cystocele, but was told she had a rectocele, not cystocele; therefore sent to therapy. She is being referred to gynocologist for rectal repair, referral appt 06/25/23. Prior Treatments and Tests Cystocele repair 15 yrs ago w/ hyste before that and R HETAL replacement afterward. Future Testing and Treatments Planned Feels her L hip needs a replacement but is getting rectocele addressed first. Treatment Goals Patient/Caregiver Goals Pt goal is to decrease rectocele, pt agreeable to HEP . Personal Factors Other Personal Factors That May Effect Having sporadic episodes of Therapy/Recovery dizziness and LOB. PT-OP-C Subjective Start: 06/05/23 17:53 Freq: Status: Active Protocol: Document 08/03/23 13:55 LRN (Rec: 08/03/23 16:08 LRN [id number]) OP-PT Subjective Patient Comments Patient Comments Saw surgeon, planned in 2 months for vaginal vault prolapse surgery. Surgery types: sacrocolpopexy or sacrospinous lig suspension. Pt told to continue therapy. PT-OP-I Pelvic Floor Start: 06/05/23 17:53 Freq: Status: Active Protocol: Document 06/11/23 13:47 LRN (Rec: 06/11/23 14:46 LRN [id number]) Pelvic Floor Assessment Urine Urinary Symptoms Prolapse,Falling Out Feeling/ Heavy Other Urinary Symptoms Urologist told her she was not completely emptying. Leakage Size Large Leakage Cause Urge Other Leakage Causes Walking to bathroom and leakage while sleeping Voiding Frequency 3x in AM, 3-4x in PM Nocturia 2-3 Pads Used In 24 Hours 1 daytime, 1 nighttime. Urine Pad Type Panty Liner Bowel Bowel Symptoms Constipation Bowel Movement Frequency 1 [place] Stool Chart Comments Variable stool types. Prolapse Rectocele Grade 4 Prolapse Comments Pt rectocele bulging out ~5 cm from vaginal opening. Comments Pelvic Floor Comments Not able to assess PF contractibility and strength due to severity of cystocele. Further bulging with each PF contraction while on a wedge. PT-OP-J Posture/Palpation/Skin Start: 06/05/23 17:53 Freq: Status: Active Protocol: Document 06/11/23 13:47 LRN (Rec: 06/11/23 14:46 LRN [id number]) Posture Evaluation Position Standing T-Spine Posture Increased Kyphosis L-Spine Posture Decreased Lordosis Shoulder Posture (L) Elevated Ankle/Foot Posture (L) Calcaneal Inversion,(L) Forefoot Abducted Comments Posture Comments C-curve of spine with apex on left. PT-OP-K Range of Motion Start: 06/05/23 17:53 Freq: Status: Active Protocol: Document 06/11/23 13:47 LRN (Rec: 06/11/23 14:46 LRN [id number]) Lumbar Spine Range of Motion Lumbar Spine Active Degrees Testing Position Standing Flexion 80 Extension 3 Rotation Left 5 Rotation Right 10 Lateral Flexion Left 10 Lateral Flexion Right 7 Hip Goniometric Range of Motion Hip Right Passive Testing Position Supine Flexion w/Knee Flexed 80 Abduction 18 Internal Rotation 15 External Rotation 25 Comments R HETAL side Left Passive Testing Position Supine Flexion w/Knee Flexed 90 Abduction 10 Internal Rotation 0 External Rotation 45 PT-OP-M Strength Start: 06/05/23 17:53 Freq: Status: Active Protocol: Document 06/11/23 13:47 LRN (Rec: 06/11/23 14:46 LRN [id number]) Trunk Strength Trunk Manual Muscle Testing Core Stabilization 4/5 Hip Strength Hip Manual Muscle Testing Right Flexion (L2) 2+ Poor+ External Rotation 3 Fair Internal Rotation 4 Good Left Flexion (L2) 3- Fair- Internal Rotation 4 Good PT-OP-Q Treatments Start: 06/05/23 17:53 Freq: Status: Active Protocol: Document 08/03/23 13:55 LRN (Rec: 08/03/23 16:08 N [id number]) Therapeutic Exercises Supine Exercises Wedge: Kegel/Ball squeeze Supine Exercise Name Wedge: Kegel/ball squeeze Equipment Used Wedge Reps/Minutes 16' Comments Cued on breathing based on bulge of rectal tissues. Wedge:Kegel/Bridge Supine Exercise Name Wedge: Kegel/Glut squeeze & ball squeeze/Exhale Reps/Minutes 9' Wedge: Breathing Supine Exercise Name Retraction of rectal tissue via positional posturing on wedge. Reps/Minutes 9' Comments 75% withdrawl into vaginal canal with positioning Therapeutic Activity Therapeutic Activity Transfer training Name Lateral shift supine, Log roll Stand<>Sit<>Supine with Kegel /breath Reps/Minutes 6' Comments Phys & v cuing needed. Training performed thoughout therapy. PT-OP-T Assessment and Plan Start: 06/05/23 17:53 Freq: Status: Active Protocol: Document 08/03/23 13:55 LRN (Rec: 08/03/23 16:08 [facility] [id number]) Physical Therapy Assessment Rehab Potential Rehabilitation Potential Poor Evaluation Complexity Number of Personal Factors/Comorbidities 1-2 Number of Body Systems Impaired 4 or More Clinical Presentation at Evaluation Evolving Impairments Impairments Coordination,Posture,ROM,Soft Tissue Mobility,Strength, Transfers Goals Three Impairment Weak Posterior PF muscles affecting urinary leakage. Impairment strengthen muscles that are there to contol leakage. Short Term Goal (STG) Pt will gain awareness of posterior PF weakness and positions to limiting bulging of rectocele. 06/18/23: Educated pt in positions to limit rectocele bulging: not lift head or legs together, not hold breath and not tighten abs w/o tighening PF. 07/30/23: Pt was able to identify when rectocele extended beyond her vaginal opening in standing. STG Duration 2 wks-06/23/23 (07/30/23: MET GOAL) Jail Goal (LTG) Pt will be able to coordinate breath with PF contractions to minimize vaginal vault prolapse and in sup w/hips elevated pt will be able to get vaginal tissues to retract using proper breathing technique. LTG Duration 12 wks-10/28/23 Two Impairment Increased urinary leakage. Short Term Goal (STG) Pt will be educated in vulvar/ genital care. 07/30/23: Pt educated with handout issued. STG Duration 1 wk-06/19/23 (07/30/23: MET GOAL) Jail Goal (LTG) Pt will be aware of voiding frequency and fluid input/ outputs to decrease worsening of urinary leakage. 07/30/23: Pt educated in norms for voiding frequency and fluid input/output recommendations. LTG Duration 8 wks-08/08/23 (07/30/23: MET GOAL) One Impairment Pt lacks appropriate self care HEP. Short Term Goal (STG) Education in proper methods for transfer with coordination of breathing, PF contractions . 06/18/23: Pt educated in transfer with breath and Kegels. STG Duration 06/18/23: MET GOAL [facility] Goal (LTG) Pt will be independent with a self care HEP of PF strengthening and hip ROM exercises. 06/18/23: I/S pt Hips Elevated ex's of <100% effort kegel and Glut squeeze, and transfers coordinating Kegel/ breathe. LTG Duration 12 wks-10/28/23 progressed Assessment Summary Assessment Pt is a 67 yo female diagnosed with vaginal vault prolapse with surgery scheduled in 2 months. The vaginal tissues appear healthy and is bulging out to start in supine on wedge 80% compared to previously 75%. The pt is able to mildly pull vaginal tissues inward with coordinated breathwork and Kegel. Best result with use of hip AD's to help with Kegel . Pt bulges out more with inhale and with movement not coordinated with breath and Kegel (glut squeeze for hip lift). Pt will benefit from further skilled PT for further training and PF strengthening and functional positional training to prepare her for surgery. Physical Therapy Plan Frequency and Duration Frequency of Treatment 1x/Week Duration of treatment (weeks) 12 Plan of Care Start Date 08/03/23 Plan of Care End Date 10/28/23 Therapeutic Interventions Therapeutic Interventions Home Exercise Program,Manual Therapy,Self-Care/Home Management,Soft Tissue Mobilization,Therapeutic Activities,Therapeutic Exercises Next Visit Focus/Plan Next Note Type Treatment Note Next Visit Plan (POC: Continue until surgery to improve/focus on self core pressure mgmt, strengthen PF and ex to improve symmetry of hip mobility and progression of HEP.) Next: If core pressure managed start standing training for core pressure mgmt for posture training and ex. -HEP: Issue Mat hip AD stretch, R HETAL hip ER stretch, L hip IR stretch. Hip general strengthening (w/core pressure mgmt). I/S in supine LB stretch (to minimize bulge of rectocele). -Pt education and discussion in Urinary urge technique with handout if beneficial. -strengthen PF.
--- NOTE | 2023-08-03 16:09 | PT.OPPOC ---
Physical, Occupational & Speech Therapy At [facility] Current Diagnoses Stiffness of unspecified hip, not elsewhere classified (08/03/23) Muscle weakness (generalized) (08/03/23) Stress incontinence (female) (male) (08/03/23) Rectocele (08/03/23) Visit Care Team Role Provider Type Colin Esposito MD Family Provider Non-Staff Primary Care Provider Specialty: Family Practice Address: [address] [place] [address], [id number] Email: Ghulam Florence MD Attending Provider Non-Staff Referring Provider Specialty: Medical Address: [address] [place] [address], [phone] Email: Plan Of Care PT-OP-T Assessment and Plan Start: 06/05/23 17:53 Freq: Status: Active Protocol: Document 08/03/23 13:55 LRN (Rec: 08/03/23 16:08 LRN [id number]) Physical Therapy Assessment Rehab Potential Rehabilitation Potential Poor Evaluation Complexity Number of Personal Factors/Comorbidities 1-2 Number of Body Systems Impaired 4 or More Clinical Presentation at Evaluation Evolving Impairments Impairments Coordination,Posture,ROM,Soft Tissue Mobility,Strength, Transfers Goals Three Impairment Weak Posterior PF muscles affecting urinary leakage. Impairment strengthen muscles that are there to contol leakage. Short Term Goal (STG) Pt will gain awareness of posterior PF weakness and positions to limiting bulging of rectocele. 06/18/23: Educated pt in positions to limit rectocele bulging: not lift head or legs together, not hold breath and not tighten abs w/o tighening PF. 07/30/23: Pt was able to identify when rectocele extended beyond her vaginal opening in standing. STG Duration 2 wks-06/23/23 (07/30/23: MET GOAL) [employer] Goal (LTG) Pt will be able to coordinate breath with PF contractions to minimize vaginal vault prolapse and in sup w/hips elevated pt will be able to get vaginal tissues to retract using proper breathing technique. LTG Duration 12 wks-10/28/23 Two Impairment Increased urinary leakage. Short Term Goal (STG) Pt will be educated in vulvar/ genital care. 07/30/23: Pt educated with handout issued. STG Duration 1 wk-06/19/23 (07/30/23: MET GOAL) Retirement Goal (LTG) Pt will be aware of voiding frequency and fluid input/ outputs to decrease worsening of urinary leakage. 07/30/23: Pt educated in norms for voiding frequency and fluid input/output recommendations. LTG Duration 8 wks-08/08/23 (07/30/23: MET GOAL) One Impairment Pt lacks appropriate self care HEP. Short Term Goal (STG) Education in proper methods for transfer with coordination of breathing, PF contractions . 06/18/23: Pt educated in transfer with breath and Kegels. STG Duration 06/18/23: MET GOAL [facility] Goal (LTG) Pt will be independent with a self care HEP of PF strengthening and hip ROM exercises. 06/18/23: I/S pt Hips Elevated ex's of <100% effort kegel and Glut squeeze, and transfers coordinating Kegel/ breathe. LTG Duration 12 wks-10/28/23 progressed Assessment Summary Assessment Pt is a 67 yo female diagnosed with vaginal vault prolapse with surgery scheduled in 2 months. The vaginal tissues appear healthy and is bulging out to start in supine on wedge 80% compared to previously 75%. The pt is able to mildly pull vaginal tissues inward with coordinated breathwork and Kegel. Best result with use of hip AD's to help with Kegel . Pt bulges out more with inhale and with movement not coordinated with breath and Kegel (glut squeeze for hip lift). Pt will benefit from further skilled PT for further training and PF strengthening and functional positional training to prepare her for surgery. Physical Therapy Plan Frequency and Duration Frequency of Treatment 1x/Week Duration of treatment (weeks) 12 Plan of Care Start Date 08/03/23 Plan of Care End Date 10/28/23 Therapeutic Interventions Therapeutic Interventions Home Exercise Program,Manual Therapy,Self-Care/Home Management,Soft Tissue Mobilization,Therapeutic Activities,Therapeutic Exercises Next Visit Focus/Plan Next Note Type Treatment Note Next Visit Plan (POC: Continue until surgery to improve/focus on self core pressure mgmt, strengthen PF and ex to improve symmetry of hip mobility and progression of HEP.) Next: If core pressure managed start standing training for core pressure mgmt for posture training and ex. -HEP: Issue Mat hip AD stretch, R HETAL hip ER stretch, L hip IR stretch. Hip general strengthening (w/core pressure mgmt). I/S in supine LB stretch (to minimize bulge of rectocele). -Pt education and discussion in Urinary urge technique with handout if beneficial. -strengthen PF. Plan of Care Dates Plan of Care Start Date 08/03/23 Plan of Care End Date 10/28/23 Electronically Signed by: Sarina Keenan, PT 08/03/23 [id number] If you are in agreement with this Plan of Care, please return a signed and dated copy. I have reviewed this Plan of Care and certify that the skilled therapy services above are required to meet the patient?s needs. Physician Signature Date Printed Name and Credentials Clinical Instructor Signature Printed Name and Credentials
--- NOTE | 2023-08-21 17:36 | PT.OTN ---
Current Diagnoses Stiffness of unspecified hip, not elsewhere classified (08/21/23) Muscle weakness (generalized) (08/21/23) Stress incontinence (female) (male) (08/21/23) Rectocele (08/21/23) Physical Therapy Treatment Note PT-OP-A Visit Information Start: 06/05/23 17:53 Freq: Status: Active Protocol: Document 08/21/23 10:37 LRN (Rec: 08/21/23 11:25 LRN [id number]) Out-Patient Physical Therapy Visit Information Visit Information Visit Type Treatment Note Visit Note On list for surgery, possibly early Oct. Visit Start Time 10:37 Visit Stop Time 11:21 Visit Number 8 Evaluation Information Evaluation Date 06/11/23 Precautions Precautions Severe rectocele stage 4. Per intake form: R HETAL after Cystocele repair 15 yrs ago, 2019 Gall bladder removed, reported sporadic dizziness episodes and LOB w/o fall. PT-OP-B Current Condition Start: 06/05/23 17:53 Freq: Status: Active Protocol: Document 06/11/23 13:47 LRN (Rec: 06/11/23 14:46 LRN [id number]) Current Condition History of Current Condition Onset Date 6 months ago, History of Current Condition Has had urinary leakage for past 6 month that has worsened in the past 3 month. She thinks she may have been having cystocele, but was told she had a rectocele, not cystocele; therefore sent to therapy. She is being referred to gynocologist for rectal repair, referral appt 06/25/23. Prior Treatments and Tests Cystocele repair 15 yrs ago w/ hyste before that and R HETAL replacement afterward. Future Testing and Treatments Planned Feels her L hip needs a replacement but is getting rectocele addressed first. Treatment Goals Patient/Caregiver Goals Pt goal is to decrease rectocele, pt agreeable to HEP . Personal Factors Other Personal Factors That May Effect Having sporadic episodes of Therapy/Recovery dizziness and LOB. PT-OP-C Subjective Start: 06/05/23 17:53 Freq: Status: Active Protocol: Document 08/21/23 10:37 LRN (Rec: 08/21/23 11:25 LRN [id number]) OP-PT Subjective Patient Comments Patient Comments States 2 wks ago was sitting on a couch w/recliner lift up at 's house and she was trying to lower the legs by pushing down on recliner and felt a pull in lower abdomen and pain for brief time of pushing with her legs. PT-OP-I Pelvic Floor Start: 06/05/23 17:53 Freq: Status: Active Protocol: Document 06/11/23 13:47 LRN (Rec: 06/11/23 14:46 LRN [id number]) Pelvic Floor Assessment Urine Urinary Symptoms Prolapse,Falling Out Feeling/ Heavy Other Urinary Symptoms Urologist told her she was not completely emptying. Leakage Size Large Leakage Cause Urge Other Leakage Causes Walking to bathroom and leakage while sleeping Voiding Frequency 3x in AM, 3-4x in PM Nocturia 2-3 Pads Used In 24 Hours 1 daytime, 1 nighttime. Urine Pad Type Panty Liner Bowel Bowel Symptoms Constipation Bowel Movement Frequency 1 [place] Stool Chart Comments Variable stool types. Prolapse Rectocele Grade 4 Prolapse Comments Pt rectocele bulging out ~5 cm from vaginal opening. Comments Pelvic Floor Comments Not able to assess PF contractibility and strength due to severity of cystocele. Further bulging with each PF contraction while on a wedge. PT-OP-J Posture/Palpation/Skin Start: 06/05/23 17:53 Freq: Status: Active Protocol: Document 06/11/23 13:47 LRN (Rec: 06/11/23 14:46 LRN [id number]) Posture Evaluation Position Standing T-Spine Posture Increased Kyphosis L-Spine Posture Decreased Lordosis Shoulder Posture (L) Elevated Ankle/Foot Posture (L) Calcaneal Inversion,(L) Forefoot Abducted Comments Posture Comments C-curve of spine with apex on left. PT-OP-K Range of Motion Start: 06/05/23 17:53 Freq: Status: Active Protocol: Document 06/11/23 13:47 LRN (Rec: 06/11/23 14:46 LRN [id number]) Lumbar Spine Range of Motion Lumbar Spine Active Degrees Testing Position Standing Flexion 80 Extension 3 Rotation Left 5 Rotation Right 10 Lateral Flexion Left 10 Lateral Flexion Right 7 Hip Goniometric Range of Motion Hip Right Passive Testing Position Supine Flexion w/Knee Flexed 80 Abduction 18 Internal Rotation 15 External Rotation 25 Comments R HETAL side Left Passive Testing Position Supine Flexion w/Knee Flexed 90 Abduction 10 Internal Rotation 0 External Rotation 45 PT-OP-M Strength Start: 06/05/23 17:53 Freq: Status: Active Protocol: Document 06/11/23 13:47 LRN (Rec: 06/11/23 14:46 LRN [id number]) Trunk Strength Trunk Manual Muscle Testing Core Stabilization 4/5 Hip Strength Hip Manual Muscle Testing Right Flexion (L2) 2+ Poor+ External Rotation 3 Fair Internal Rotation 4 Good Left Flexion (L2) 3- Fair- Internal Rotation 4 Good PT-OP-Q Treatments Start: 06/05/23 17:53 Freq: Status: Active Protocol: Document 08/21/23 10:37 LRN (Rec: 08/21/23 11:25 LRN [id number]) Therapeutic Exercises Supine Exercises Wedge/TA tightening Reps/Minutes 4' Comments Extra time to determine max tolerated contraction due to L LQA pain Bowel massage Supine Exercise Name Pt BM massage lead by PT Equipment Used Wedge Reps/Minutes 5' Comments Pt needing cuing for massage path, depth of massage, and technique Wedge: Kegel/Ball squeeze Supine Exercise Name Retraction rectal tissues on wedge & ex: drawing up/in with exhale>ball sqz Equipment Used Wedge, ball Reps/Minutes 10' Comments Cued on breathing based on bulge of rectal tissues. Wedge: Kegel/Glut squeeze Supine Exercise Name Working sequence of Drawing up /in rectal tissue w/exhale f/b Kegel & hold Reps/Minutes 5 SH x 3' Comments Gel improved ease of rectal tissue withdrawl to ~85% withdrawl Wedge: Breathing Supine Exercise Name Retraction of rectal tissue via positional posturing on wedge. Reps/Minutes 9' Comments 80% withdrawl into vaginal canal with positioning Sidelying Exercises TA tightening Reps/Minutes 3' Comments Extra time to determine max tolerated contraction due to L LQA pain Manual Therapy Treatment Soft Tissue Mobilization Bowel massage Body Location Abdomen Mobilization Type Other Body Position Supine on wedge Comments Bowel massage by therapist and training of pt for self massage: R hip>ribs>across belly to ribs>L hip x 5 Self-Care/Home Management Treatment Activities Self-Care/Home Management Activities Issued & reviewed self care: BM massage PT-OP-T Assessment and Plan Start: 06/05/23 17:53 Freq: Status: Active Protocol: Document 08/21/23 10:37 LRN (Rec: 08/21/23 11:25 LRN [id number]) Physical Therapy Assessment Goals Three Impairment Weak Posterior PF muscles affecting urinary leakage. Impairment strengthen muscles that are there to contol leakage. Short Term Goal (STG) Pt will gain awareness of posterior PF weakness and positions to limiting bulging of rectocele. 06/18/23: Educated pt in positions to limit rectocele bulging: not lift head or legs together, not hold breath and not tighten abs w/o tighening PF. 07/30/23: Pt was able to identify when rectocele extended beyond her vaginal opening in standing. STG Duration 2 wks-06/23/23 (07/30/23: MET GOAL) [facility] Goal (LTG) Pt will be able to coordinate breath with PF contractions to minimize vaginal vault prolapse and in sup w/hips elevated pt will be able to get vaginal tissues to retract using proper breathing technique. 08/21/23: Able to retract with initial assist 75%. LTG Duration 12 wks-10/28/23 progressing 08/21/23 One Impairment Pt lacks appropriate self care HEP. Short Term Goal (STG) Education in proper methods for transfer with coordination of breathing, PF contractions . 06/18/23: Pt educated in transfer with breath and Kegels. STG Duration 06/18/23: MET GOAL [facility] Goal (LTG) Pt will be independent with a self care HEP of PF strengthening and hip ROM exercises. 06/18/23: I/S pt Hips Elevated ex's of <100% effort kegel and Glut squeeze, and transfers coordinating Kegel/ breathe. 08/21/23: HEP: BM massage for constipation. LTG Duration 12 wks-10/28/23 progressed Assessment Summary Assessment Pt is a 67 yo female diagnosed with vaginal vault prolapse with surgery scheduled in ~2 months. The pt recently experienced constipation for first time and reported strain of abdominal left lower quadrant, limiting her ability to perform a painfree TA contraction. Pt needed to grade her contraction to avoid pain. Lift if small intestines did not cause pain, but TA contraction caused pain in sup & R sidelie if tightened too forcefully; therefore strain expected. To start rectal tissues appeared to be protruding ~ 40% from vaginal canal and was able to be drawn back with ~25% showing at end of treatement. Physical Therapy Plan Frequency and Duration Frequency of Treatment 1x/Week Duration of treatment (weeks) 12 Plan of Care Start Date 08/03/23 Plan of Care End Date 10/28/23 Next Visit Focus/Plan Next Note Type Treatment Note Next Visit Plan (POC: Continue until surgery to improve/focus on self core pressure mgmt, strengthen PF and ex to improve symmetry of hip mobility and progression of HEP.) Next: If core pressure managed start standing training for core pressure mgmt for posture training and ex. -HEP: Issue Mat hip AD stretch, R HETAL hip ER stretch, L hip IR stretch. Hip general strengthening (w/core pressure mgmt). I/S in supine LB stretch (to minimize bulge of rectocele). -Pt education and discussion in Urinary urge technique with handout if beneficial. -strengthen PF.
--- NOTE | 2023-08-28 14:28 | PT.OTN ---
Current Diagnoses Stiffness of unspecified hip, not elsewhere classified (08/28/23) Muscle weakness (generalized) (08/28/23) Stress incontinence (female) (male) (08/28/23) Rectocele (08/28/23) Physical Therapy Treatment Note PT-OP-A Visit Information Start: 06/05/23 17:53 Freq: Status: Active Protocol: Document 08/28/23 10:35 LRN (Rec: 08/28/23 11:21 LRN [id number]) Out-Patient Physical Therapy Visit Information Visit Information Visit Type Treatment Note Visit Note Rectocele repair surgery scheduled November 04, 2023. Visit Start Time 10:35 Visit Stop Time 11:13 Visit Number 9 Evaluation Information Evaluation Date 06/11/23 Precautions Precautions Severe rectocele stage 4. Per intake form: R HETAL after Cystocele repair 15 yrs ago, 2019 Gall bladder removed, reported sporadic dizziness episodes and LOB w/o fall. PT-OP-B Current Condition Start: 06/05/23 17:53 Freq: Status: Active Protocol: Document 06/11/23 13:47 LRN (Rec: 06/11/23 14:46 LRN [id number]) Current Condition History of Current Condition Onset Date 6 months ago, History of Current Condition Has had urinary leakage for past 6 month that has worsened in the past 3 month. She thinks she may have been having cystocele, but was told she had a rectocele, not cystocele; therefore sent to therapy. She is being referred to gynocologist for rectal repair, referral appt 06/25/23. Prior Treatments and Tests Cystocele repair 15 yrs ago w/ hyste before that and R HETAL replacement afterward. Future Testing and Treatments Planned Feels her L hip needs a replacement but is getting rectocele addressed first. Treatment Goals Patient/Caregiver Goals Pt goal is to decrease rectocele, pt agreeable to HEP . Personal Factors Other Personal Factors That May Effect Having sporadic episodes of Therapy/Recovery dizziness and LOB. PT-OP-C Subjective Start: 06/05/23 17:53 Freq: Status: Active Protocol: Document 08/28/23 10:35 LRN (Rec: 08/28/23 11:21 LRN [id number]) OP-PT Subjective Patient Comments Patient Comments Scheduled one more week. Finds PT helpful because she feels the muscles responding and feels her rectocele is not as out as much and she can draw the tissued back in if laid down and can keep them in for a little whie. PT-OP-I Pelvic Floor Start: 06/05/23 17:53 Freq: Status: Active Protocol: Document 06/11/23 13:47 LRN (Rec: 06/11/23 14:46 LRN [id number]) Pelvic Floor Assessment Urine Urinary Symptoms Prolapse,Falling Out Feeling/ Heavy Other Urinary Symptoms Urologist told her she was not completely emptying. Leakage Size Large Leakage Cause Urge Other Leakage Causes Walking to bathroom and leakage while sleeping Voiding Frequency 3x in AM, 3-4x in PM Nocturia 2-3 Pads Used In 24 Hours 1 daytime, 1 nighttime. Urine Pad Type Panty Liner Bowel Bowel Symptoms Constipation Bowel Movement Frequency 1 [place] Stool Chart Comments Variable stool types. Prolapse Rectocele Grade 4 Prolapse Comments Pt rectocele bulging out ~5 cm from vaginal opening. Comments Pelvic Floor Comments Not able to assess PF contractibility and strength due to severity of cystocele. Further bulging with each PF contraction while on a wedge. PT-OP-J Posture/Palpation/Skin Start: 06/05/23 17:53 Freq: Status: Active Protocol: Document 06/11/23 13:47 LRN (Rec: 06/11/23 14:46 LRN [id number]) Posture Evaluation Position Standing T-Spine Posture Increased Kyphosis L-Spine Posture Decreased Lordosis Shoulder Posture (L) Elevated Ankle/Foot Posture (L) Calcaneal Inversion,(L) Forefoot Abducted Comments Posture Comments C-curve of spine with apex on left. PT-OP-K Range of Motion Start: 06/05/23 17:53 Freq: Status: Active Protocol: Document 06/11/23 13:47 LRN (Rec: 06/11/23 14:46 LRN [id number]) Lumbar Spine Range of Motion Lumbar Spine Active Degrees Testing Position Standing Flexion 80 Extension 3 Rotation Left 5 Rotation Right 10 Lateral Flexion Left 10 Lateral Flexion Right 7 Hip Goniometric Range of Motion Hip Right Passive Testing Position Supine Flexion w/Knee Flexed 80 Abduction 18 Internal Rotation 15 External Rotation 25 Comments R HETAL side Left Passive Testing Position Supine Flexion w/Knee Flexed 90 Abduction 10 Internal Rotation 0 External Rotation 45 PT-OP-M Strength Start: 06/05/23 17:53 Freq: Status: Active Protocol: Document 06/11/23 13:47 LRN (Rec: 06/11/23 14:46 LRN [id number]) Trunk Strength Trunk Manual Muscle Testing Core Stabilization 4/5 Hip Strength Hip Manual Muscle Testing Right Flexion (L2) 2+ Poor+ External Rotation 3 Fair Internal Rotation 4 Good Left Flexion (L2) 3- Fair- Internal Rotation 4 Good PT-OP-Q Treatments Start: 06/05/23 17:53 Freq: Status: Active Protocol: Document 08/28/23 10:35 LRN (Rec: 08/28/23 11:21 LRN [id number]) Therapeutic Exercises Supine Exercises Wedge/TA tightening Reps/Minutes 4' Comments Extra time to determine max tolerated contraction due to L LQA pain Other Exercises Hands/knees Other Exercise Name TA tightening Reps/Minutes 5' Manual Therapy Treatment Soft Tissue Mobilization ABdomen Body Location ABdomen/bladder primarily caudal lift Mobilization Type Myofascial Release Body Position Supine on wedge Comments Much restriction ~ above amt pubic bone. Neuro Re-Education Treatment Movement Re-Education Movement Re-education Activities Core stabilization while chest breathing and PF contraction. Cued for chest expansion, and Abdomen/PF drawing in. Had pt self cue with hands on abdomen to identify lack of TA tighening stability. Tried MFR with arms in a V for pec stretch and chest expansion. PT-OP-T Assessment and Plan Start: 06/05/23 17:53 Freq: Status: Active Protocol: Document 08/28/23 10:35 LRN (Rec: 08/28/23 11:21 LRN [id number]) Physical Therapy Assessment Goals Three Impairment Weak Posterior PF muscles affecting urinary leakage. Impairment strengthen muscles that are there to contol leakage. Short Term Goal (STG) Pt will gain awareness of posterior PF weakness and positions to limiting bulging of rectocele. 06/18/23: Educated pt in positions to limit rectocele bulging: not lift head or legs together, not hold breath and not tighten abs w/o tighening PF. 07/30/23: Pt was able to identify when rectocele extended beyond her vaginal opening in standing. STG Duration 2 wks-06/23/23 (07/30/23: MET GOAL) Watch Train Assembler Goal (LTG) Pt will be able to coordinate breath with PF contractions to minimize vaginal vault prolapse and in sup w/hips elevated pt will be able to get vaginal tissues to retract using proper breathing technique. 08/21/23: Able to retract with initial assist 75%. LTG Duration 12 wks-10/28/23 progressing 08/21/23 One Impairment Pt lacks appropriate self care HEP. Short Term Goal (STG) Education in proper methods for transfer with coordination of breathing, PF contractions . 06/18/23: Pt educated in transfer with breath and Kegels. STG Duration 06/18/23: MET GOAL Senior Care Goal (LTG) Pt will be independent with a self care HEP of PF strengthening and hip ROM exercises. 06/18/23: I/S pt Hips Elevated ex's of <100% effort kegel and Glut squeeze, and transfers coordinating Kegel/ breathe. 08/21/23: HEP: BM massage for constipation. LTG Duration 12 wks-10/28/23 progressed Assessment Summary Assessment Pt is a 67 yo female diagnosed with vaginal vault prolapse with surgery scheduled 11/04/23 . Today the pt demonstrates mod bulge (~3 cm out) of vaginal tissues from vaginal canal. She was able to draw tissues in most of the way, ~1 .0-1.5 cm out. The pt appears limited in ability to draw tissues inward due to drop of vaginal vault with inhalation and shows extreme lack of core stability in maintaining a TA contraction. Further training to coordinate breathing/Core stab /PF contraction. Very weak PF contraction palpated. Pt requires cuing for breathe with transfers to manage core pressure. Physical Therapy Plan Frequency and Duration Frequency of Treatment 1x/Week Duration of treatment (weeks) 12 Plan of Care Start Date 08/03/23 Plan of Care End Date 10/28/23 Therapeutic Interventions Therapeutic Interventions Home Exercise Program,Manual Therapy,Neuromuscular Re- education,Self-Care/Home Management,Soft Tissue Mobilization,Therapeutic Activities,Therapeutic Exercises Next Visit Focus/Plan Next Note Type Progress Note Next Visit Plan Nest: PN/PUF assessment. Add Hip ex's for HEP. (POC: Continue until surgery to improve/focus on self core pressure mgmt, strengthen PF and ex to improve symmetry of hip mobility and progression of HEP.) Next: If core pressure managed start standing training for core pressure mgmt for posture training and ex. -HEP: Issue Mat hip AD stretch, R HETAL hip ER stretch, L hip IR stretch. Hip general strengthening (w/core pressure mgmt). I/S in supine LB stretch (to minimize bulge of rectocele). -Pt education and discussion in Urinary urge technique with handout if beneficial. -strengthen PF.
--- NOTE | 2023-08-31 16:48 | PT.OTN ---
Addendum entered and electronically signed by Sarina Keenan, PT 08/31/23 16:50: Palpation: May Test-positive L SIJ. Supine L leg long > long sit L leg short. Standing: L ASIS high/L PSIS low. Sacrum in L rotation. MMT: Hip ext: L 2/5, R 3/5. Original Note: Current Diagnoses Stiffness of unspecified hip, not elsewhere classified (08/31/23) Muscle weakness (generalized) (08/31/23) Stress incontinence (female) (male) (08/31/23) Rectocele (08/31/23) Physical Therapy Treatment Note PT-OP-A Visit Information Start: 06/05/23 17:53 Freq: Status: Active Protocol: Document 08/31/23 09:05 LRN (Rec: 08/31/23 09:51 LRN [id number]) Out-Patient Physical Therapy Visit Information Visit Information Visit Type Treatment Note Visit Note 3 after PN. Rectocele repair surgery scheduled November 04, 2023. Visit Start Time 09:05 Visit Stop Time 09:47 Visit Number 10 Evaluation Information Evaluation Date 06/11/23 Precautions Precautions Severe rectocele stage 4. Per intake form: R HETAL after Cystocele repair 15 yrs ago, 2019 Gall bladder removed, reported sporadic dizziness episodes and LOB w/o fall. PT-OP-B Current Condition Start: 06/05/23 17:53 Freq: Status: Active Protocol: Document 06/11/23 13:47 LRN (Rec: 06/11/23 14:46 LRN [id number]) Current Condition History of Current Condition Onset Date 6 months ago, History of Current Condition Has had urinary leakage for past 6 month that has worsened in the past 3 month. She thinks she may have been having cystocele, but was told she had a rectocele, not cystocele; therefore sent to therapy. She is being referred to gynocologist for rectal repair, referral appt 06/25/23. Prior Treatments and Tests Cystocele repair 15 yrs ago w/ hyste before that and R HETAL replacement afterward. Future Testing and Treatments Planned Feels her L hip needs a replacement but is getting rectocele addressed first. Treatment Goals Patient/Caregiver Goals Pt goal is to decrease rectocele, pt agreeable to HEP . Personal Factors Other Personal Factors That May Effect Having sporadic episodes of Therapy/Recovery dizziness and LOB. PT-OP-C Subjective Start: 06/05/23 17:53 Freq: Status: Active Protocol: Document 08/31/23 09:05 LRN (Rec: 08/31/23 09:51 LRN [id number]) OP-PT Subjective Patient Comments Patient Comments Has been working on holding TA and breathwork with transfers . PT-OP-I Pelvic Floor Start: 06/05/23 17:53 Freq: Status: Active Protocol: Document 06/11/23 13:47 LRN (Rec: 06/11/23 14:46 LRN [id number]) Pelvic Floor Assessment Urine Urinary Symptoms Prolapse,Falling Out Feeling/ Heavy Other Urinary Symptoms Urologist told her she was not completely emptying. Leakage Size Large Leakage Cause Urge Other Leakage Causes Walking to bathroom and leakage while sleeping Voiding Frequency 3x in AM, 3-4x in PM Nocturia 2-3 Pads Used In 24 Hours 1 daytime, 1 nighttime. Urine Pad Type Panty Liner Bowel Bowel Symptoms Constipation Bowel Movement Frequency 1 [place] Stool Chart Comments Variable stool types. Prolapse Rectocele Grade 4 Prolapse Comments Pt rectocele bulging out ~5 cm from vaginal opening. Comments Pelvic Floor Comments Not able to assess PF contractibility and strength due to severity of cystocele. Further bulging with each PF contraction while on a wedge. PT-OP-J Posture/Palpation/Skin Start: 06/05/23 17:53 Freq: Status: Active Protocol: Document 06/11/23 13:47 LRN (Rec: 06/11/23 14:46 LRN [id number]) Posture Evaluation Position Standing T-Spine Posture Increased Kyphosis L-Spine Posture Decreased Lordosis Shoulder Posture (L) Elevated Ankle/Foot Posture (L) Calcaneal Inversion,(L) Forefoot Abducted Comments Posture Comments C-curve of spine with apex on left. PT-OP-K Range of Motion Start: 06/05/23 17:53 Freq: Status: Active Protocol: Document 06/11/23 13:47 LRN (Rec: 06/11/23 14:46 LRN [id number]) Lumbar Spine Range of Motion Lumbar Spine Active Degrees Testing Position Standing Flexion 80 Extension 3 Rotation Left 5 Rotation Right 10 Lateral Flexion Left 10 Lateral Flexion Right 7 Hip Goniometric Range of Motion Hip Right Passive Testing Position Supine Flexion w/Knee Flexed 80 Abduction 18 Internal Rotation 15 External Rotation 25 Comments R HETAL side Left Passive Testing Position Supine Flexion w/Knee Flexed 90 Abduction 10 Internal Rotation 0 External Rotation 45 PT-OP-M Strength Start: 06/05/23 17:53 Freq: Status: Active Protocol: Document 06/11/23 13:47 LRN (Rec: 06/11/23 14:46 LRN [id number]) Trunk Strength Trunk Manual Muscle Testing Core Stabilization 4/5 Hip Strength Hip Manual Muscle Testing Right Flexion (L2) 2+ Poor+ External Rotation 3 Fair Internal Rotation 4 Good Left Flexion (L2) 3- Fair- Internal Rotation 4 Good PT-OP-Q Treatments Start: 06/05/23 17:53 Freq: Status: Active Protocol: Document 08/31/23 09:05 LRN (Rec: 08/31/23 09:51 LRN [id number]) Therapeutic Exercises Supine Exercises Wedge: Breathing Supine Exercise Name Retraction of rectal tissue via positional posturing on wedge. Reps/Minutes 5' Comments 80% withdrawl into vaginal canal with positioning Therapeutic Activity Therapeutic Activity Transfer training Name Breathwork with transfers & for equal WBing on feet w/scanlon /ADLs (shoes on). Manual Therapy Treatment Soft Tissue Mobilization Sacal balancing Body Location Sacral Balancing. Body Position Prone Comments Infer/PA glide L sacral sulcus . Shear R sacrum to L. PA of L SANDEEP. 6 point Ischial-Ilial Rebalancing, & Ischiums-Iliums balancing PT-OP-T Assessment and Plan Start: 06/05/23 17:53 Freq: Status: Active Protocol: Document 08/31/23 09:05 LRN (Rec: 08/31/23 09:51 LRN [id number]) Physical Therapy Assessment Goals Three Impairment Weak Posterior PF muscles affecting urinary leakage. Impairment strengthen muscles that are there to contol leakage. Short Term Goal (STG) Pt will gain awareness of posterior PF weakness and positions to limiting bulging of rectocele. 06/18/23: Educated pt in positions to limit rectocele bulging: not lift head or legs together, not hold breath and not tighten abs w/o tighening PF. 07/30/23: Pt was able to identify when rectocele extended beyond her vaginal opening in standing. STG Duration 2 wks-06/23/23 (07/30/23: MET GOAL) Senior Care Goal (LTG) Pt will be able to coordinate breath with PF contractions to minimize vaginal vault prolapse and in sup w/hips elevated pt will be able to get vaginal tissues to retract using proper breathing technique. 08/21/23: Able to retract with initial assist 75%. LTG Duration 12 wks-10/28/23 progressing 08/21/23 One Impairment Pt lacks appropriate self care HEP. Short Term Goal (STG) Education in proper methods for transfer with coordination of breathing, PF contractions . 06/18/23: Pt educated in transfer with breath and Kegels. STG Duration 06/18/23: MET GOAL Waste Treatment Operator Goal (LTG) Pt will be independent with a self care HEP of PF strengthening and hip ROM exercises. 06/18/23: I/S pt Hips Elevated ex's of <100% effort kegel and Glut squeeze, and transfers coordinating Kegel/ breathe. 08/21/23: HEP: BM massage for constipation. LTG Duration 12 wks-10/28/23 progressed Assessment Summary Assessment Pt is a 67 yo female diagnosed with vaginal vault prolapse with surgery scheduled 11/04/23 . Today LBP is 4/10. Sacrum in L rot, L innominate jigsaw operator rot. Hip Ext Strength: L 2/5, R 3/5. Extra time always needed for pt to transition to different positions, working on coordination of breathwork with transfers and pelvic stabilizing positions after manual mob. Pt appeared to have corrected sacral rot and innominate position, but there is tightness on the L SIJ side and R hip; therefore soft tissue dysfunction is probably present and may require one more treatment to stabilize. Physical Therapy Plan Frequency and Duration Frequency of Treatment 1x/Week Duration of treatment (weeks) 12 Plan of Care Start Date 08/03/23 Plan of Care End Date 10/28/23 Next Visit Focus/Plan Next Note Type Treatment Note Next Visit Plan Next: Add Hip ex's to HEP. Complete sacral balancing. (POC: Continue until surgery to improve/focus on self core pressure mgmt, strengthen PF and ex to improve symmetry of hip mobility and progression of HEP.) Next: If core pressure managed start standing training for core pressure mgmt for posture training and ex. -HEP: Issue Mat hip AD stretch, R HETAL hip ER stretch, L hip IR stretch. Hip general strengthening (w/core pressure mgmt). I/S in supine LB stretch (to minimize bulge of rectocele). -Pt education and discussion in Urinary urge technique with handout if beneficial. -strengthen PF.
--- NOTE | 2023-09-11 16:41 | PT.OTN ---
Current Diagnoses Stiffness of unspecified hip, not elsewhere classified (09/11/23) Muscle weakness (generalized) (09/11/23) Stress incontinence (female) (male) (09/11/23) Rectocele (09/11/23) Physical Therapy Treatment Note PT-OP-A Visit Information Start: 06/05/23 17:53 Freq: Status: Active Protocol: Document 09/11/23 13:00 LRN (Rec: 09/11/23 13:48 LRN [id number]) Out-Patient Physical Therapy Visit Information Visit Information Visit Type Treatment Note Visit Note 4 after PN. Rectocele repair surgery rescheduled November 05, 2023. Visit Start Time 13:00 Visit Stop Time 13:46 Visit Number 11 Evaluation Information Evaluation Date 06/11/23 Precautions Precautions Severe rectocele stage 4. Per intake form: R HETAL after Cystocele repair 15 yrs ago, 2019 Gall bladder removed, reported sporadic dizziness episodes and LOB w/o fall. PT-OP-B Current Condition Start: 06/05/23 17:53 Freq: Status: Active Protocol: Document 06/11/23 13:47 LRN (Rec: 06/11/23 14:46 LRN [id number]) Current Condition History of Current Condition Onset Date 6 months ago, History of Current Condition Has had urinary leakage for past 6 month that has worsened in the past 3 month. She thinks she may have been having cystocele, but was told she had a rectocele, not cystocele; therefore sent to therapy. She is being referred to gynocologist for rectal repair, referral appt 06/25/23. Prior Treatments and Tests Cystocele repair 15 yrs ago w/ hyste before that and R HETAL replacement afterward. Future Testing and Treatments Planned Feels her L hip needs a replacement but is getting rectocele addressed first. Treatment Goals Patient/Caregiver Goals Pt goal is to decrease rectocele, pt agreeable to HEP . Personal Factors Other Personal Factors That May Effect Having sporadic episodes of Therapy/Recovery dizziness and LOB. PT-OP-C Subjective Start: 06/05/23 17:53 Freq: Status: Active Protocol: Document 09/11/23 13:00 LRN (Rec: 09/11/23 13:48 LRN [id number]) OP-PT Subjective Patient Comments Patient Comments Feels like her prolapse is in, hasn't had any troubles, no problem after last session, no soreness. LBP relief from last session has lasted. No LBP today and hasn't been too bad, not had to use cold pack or hot pack to the back. PT-OP-I Pelvic Floor Start: 06/05/23 17:53 Freq: Status: Active Protocol: Document 06/11/23 13:47 LRN (Rec: 06/11/23 14:46 LRN [id number]) Pelvic Floor Assessment Urine Urinary Symptoms Prolapse,Falling Out Feeling/ Heavy Other Urinary Symptoms Urologist told her she was not completely emptying. Leakage Size Large Leakage Cause Urge Other Leakage Causes Walking to bathroom and leakage while sleeping Voiding Frequency 3x in AM, 3-4x in PM Nocturia 2-3 Pads Used In 24 Hours 1 daytime, 1 nighttime. Urine Pad Type Panty Liner Bowel Bowel Symptoms Constipation Bowel Movement Frequency 1 [place] Stool Chart Comments Variable stool types. Prolapse Rectocele Grade 4 Prolapse Comments Pt rectocele bulging out ~5 cm from vaginal opening. Comments Pelvic Floor Comments Not able to assess PF contractibility and strength due to severity of cystocele. Further bulging with each PF contraction while on a wedge. PT-OP-J Posture/Palpation/Skin Start: 06/05/23 17:53 Freq: Status: Active Protocol: Document 06/11/23 13:47 LRN (Rec: 06/11/23 14:46 LRN [id number]) Posture Evaluation Position Standing T-Spine Posture Increased Kyphosis L-Spine Posture Decreased Lordosis Shoulder Posture (L) Elevated Ankle/Foot Posture (L) Calcaneal Inversion,(L) Forefoot Abducted Comments Posture Comments C-curve of spine with apex on left. PT-OP-K Range of Motion Start: 06/05/23 17:53 Freq: Status: Active Protocol: Document 06/11/23 13:47 LRN (Rec: 06/11/23 14:46 LRN [id number]) Lumbar Spine Range of Motion Lumbar Spine Active Degrees Testing Position Standing Flexion 80 Extension 3 Rotation Left 5 Rotation Right 10 Lateral Flexion Left 10 Lateral Flexion Right 7 Hip Goniometric Range of Motion Hip Right Passive Testing Position Supine Flexion w/Knee Flexed 80 Abduction 18 Internal Rotation 15 External Rotation 25 Comments R HETAL side Left Passive Testing Position Supine Flexion w/Knee Flexed 90 Abduction 10 Internal Rotation 0 External Rotation 45 PT-OP-M Strength Start: 06/05/23 17:53 Freq: Status: Active Protocol: Document 06/11/23 13:47 LRN (Rec: 06/11/23 14:46 LRN [id number]) Trunk Strength Trunk Manual Muscle Testing Core Stabilization 4/5 Hip Strength Hip Manual Muscle Testing Right Flexion (L2) 2+ Poor+ External Rotation 3 Fair Internal Rotation 4 Good Left Flexion (L2) 3- Fair- Internal Rotation 4 Good PT-OP-Q Treatments Start: 06/05/23 17:53 Freq: Status: Active Protocol: Document 09/11/23 13:00 LRN (Rec: 09/11/23 13:48 LRN [id number]) Therapeutic Exercises Supine Exercises Wedge/Reverse SLR Supine Exercise Name Wedge: Reverse SLR Reps/Minutes 5x Comments Pt had ms cramp of hamstring and quad needing extra time to recover Wedge/Bridge Supine Exercise Name Wedge: Bridge Reps/Minutes 10x Comments Cued in sequencing of breath w /bridge for rectal tissue retraction Wedge: Kegel/Ball squeeze Supine Exercise Name Retraction rectal tissues on wedge & ex: drawing up/in with exhale>ball sqz Equipment Used Wedge, ball Reps/Minutes 10' Comments Cued on breathing based on bulge of rectal tissues. Wedge:Kegel/Bridge Supine Exercise Name Wedge: Kegel/Glut squeeze & ball squeeze with Exhale Reps/Minutes 9' Comments Cued on breathing based on bulge of rectal tissues. Wedge: Kegel/Glut squeeze Supine Exercise Name Working Drawing up/in rectal tissue w/exhale f/b Kegel & hold Equipment Used Wedge, Lev 2 TB Reps/Minutes 5 SH x 3' Comments Good rectal tissue retraction into vaginal canal Other Exercises Hands/knees Other Exercise Name TA tightening w/phys & v cuing , then with mirror & v cuing. Reps/Minutes 15' Comments One rest period required. Cuing for neutral spine holding. PT-OP-T Assessment and Plan Start: 06/05/23 17:53 Freq: Status: Active Protocol: Document 09/11/23 13:00 LRN (Rec: 09/11/23 13:48 LRN [id number]) Physical Therapy Assessment Goals Three Impairment Weak Posterior PF muscles affecting urinary leakage. Impairment strengthen muscles that are there to contol leakage. Short Term Goal (STG) Pt will gain awareness of posterior PF weakness and positions to limiting bulging of rectocele. 06/18/23: Educated pt in positions to limit rectocele bulging: not lift head or legs together, not hold breath and not tighten abs w/o tighening PF. 07/30/23: Pt was able to identify when rectocele extended beyond her vaginal opening in standing. STG Duration 2 wks-06/23/23 (07/30/23: MET GOAL) Kennel Keeper Goal (LTG) Pt will be able to coordinate breath with PF contractions to minimize vaginal vault prolapse and in sup w/hips elevated pt will be able to get vaginal tissues to retract using proper breathing technique. 08/21/23: Able to retract with initial assist 75%. 09/11/23: Able to retract 80% . LTG Duration 12 wks-10/28/23 progressing 09/11/23 Two Impairment Increased urinary leakage. Short Term Goal (STG) Pt will be educated in vulvar/ genital care. 07/30/23: Pt educated with handout issued. STG Duration 1 wk-06/19/23 (07/30/23: MET GOAL) [facility]dc Goal (LTG) Pt will be aware of voiding frequency and fluid input/ outputs to decrease worsening of urinary leakage. 07/30/23: Pt educated in norms for voiding frequency and fluid input/output recommendations. LTG Duration 8 wks-08/08/23 (07/30/23: MET GOAL) One Impairment Pt lacks appropriate self care HEP. Short Term Goal (STG) Education in proper methods for transfer with coordination of breathing, PF contractions . 06/18/23: Pt educated in transfer with breath and Kegels. STG Duration 06/18/23: MET GOAL [facility]dc Goal (LTG) Pt will be independent with a self care HEP of PF strengthening and hip ROM exercises. 06/18/23: I/S pt Hips Elevated ex's of <100% effort kegel and Glut squeeze, and transfers coordinating Kegel/ breathe. 08/21/23: HEP: BM massage for constipation. LTG Duration 12 wks-10/28/23 progressed Assessment Summary Assessment Pt is a 67 yo female diagnosed with vaginal vault prolapse with surgery scheduled 11/04/23 . Today she did not have a feeling of bulging of her rectal tissue to start. She began to feel prolapse with 4 pt TA strengthening. In supine she was able to rectract rectal tissues ~80% after treatment with manual assist as approved by pt. Pt able to retract tissues faster than previously. Physical Therapy Plan Frequency and Duration Frequency of Treatment 1x/Week Duration of treatment (weeks) 12 Plan of Care Start Date 08/03/23 Plan of Care End Date 10/28/23 Next Visit Focus/Plan Next Note Type Treatment Note Next Visit Plan Next: Add Hip stretches to HEP core stab type ex if able to do without increasing prolapse. Complete sacral balancing. Next: If core pressure managed start standing training for core pressure mgmt for posture training and ex. -HEP: Issue Mat hip AD stretch, R HETAL hip ER stretch, L hip IR stretch. Hip general strengthening (w/core pressure mgmt). I/S in supine LB stretch (to minimize bulge of rectocele). -Pt education and discussion in Urinary urge technique with handout if beneficial. -strengthen PF. (POC: Continue until surgery to improve/focus on self core pressure mgmt, strengthen PF and ex to improve symmetry of hip mobility and progression of HEP.)
--- NOTE | 2023-09-14 12:32 | PT.OTN ---
Current Diagnoses Stiffness of unspecified hip, not elsewhere classified (09/14/23) Muscle weakness (generalized) (09/14/23) Stress incontinence (female) (male) (09/14/23) Rectocele (09/14/23) Physical Therapy Treatment Note PT-OP-A Visit Information Start: 06/05/23 17:53 Freq: Status: Active Protocol: Document 09/14/23 11:27 LRN (Rec: 09/14/23 12:32 LRN [id number]) Out-Patient Physical Therapy Visit Information Visit Information Visit Type Treatment Note Visit Note 4 after PN. Rectocele repair surgery rescheduled November 05, 2023. Visit Start Time 11:27 Visit Stop Time 12:06 Visit Number 12 Evaluation Information Evaluation Date 06/11/23 Precautions Precautions Severe rectocele stage 4. Per intake form: R HETAL after Cystocele repair 15 yrs ago, 2019 Gall bladder removed, reported sporadic dizziness episodes and LOB w/o fall. PT-OP-B Current Condition Start: 06/05/23 17:53 Freq: Status: Active Protocol: Document 06/11/23 13:47 LRN (Rec: 06/11/23 14:46 LRN [id number]) Current Condition History of Current Condition Onset Date 6 months ago, History of Current Condition Has had urinary leakage for past 6 month that has worsened in the past 3 month. She thinks she may have been having cystocele, but was told she had a rectocele, not cystocele; therefore sent to therapy. She is being referred to gynocologist for rectal repair, referral appt 06/25/23. Prior Treatments and Tests Cystocele repair 15 yrs ago w/ hyste before that and R HETAL replacement afterward. Future Testing and Treatments Planned Feels her L hip needs a replacement but is getting rectocele addressed first. Treatment Goals Patient/Caregiver Goals Pt goal is to decrease rectocele, pt agreeable to HEP . Personal Factors Other Personal Factors That May Effect Having sporadic episodes of Therapy/Recovery dizziness and LOB. PT-OP-C Subjective Start: 06/05/23 17:53 Freq: Status: Active Protocol: Document 09/14/23 11:27 LRN (Rec: 09/14/23 12:32 LRN [id number]) OP-PT Subjective Patient Comments Patient Comments States she can feel her prolapse and it is a little crampy. PT-OP-I Pelvic Floor Start: 06/05/23 17:53 Freq: Status: Active Protocol: Document 06/11/23 13:47 LRN (Rec: 06/11/23 14:46 LRN [id number]) Pelvic Floor Assessment Urine Urinary Symptoms Prolapse,Falling Out Feeling/ Heavy Other Urinary Symptoms Urologist told her she was not completely emptying. Leakage Size Large Leakage Cause Urge Other Leakage Causes Walking to bathroom and leakage while sleeping Voiding Frequency 3x in AM, 3-4x in PM Nocturia 2-3 Pads Used In 24 Hours 1 daytime, 1 nighttime. Urine Pad Type Panty Liner Bowel Bowel Symptoms Constipation Bowel Movement Frequency 1 [place] Stool Chart Comments Variable stool types. Prolapse Rectocele Grade 4 Prolapse Comments Pt rectocele bulging out ~5 cm from vaginal opening. Comments Pelvic Floor Comments Not able to assess PF contractibility and strength due to severity of cystocele. Further bulging with each PF contraction while on a wedge. PT-OP-J Posture/Palpation/Skin Start: 06/05/23 17:53 Freq: Status: Active Protocol: Document 06/11/23 13:47 LRN (Rec: 06/11/23 14:46 LRN [id number]) Posture Evaluation Position Standing T-Spine Posture Increased Kyphosis L-Spine Posture Decreased Lordosis Shoulder Posture (L) Elevated Ankle/Foot Posture (L) Calcaneal Inversion,(L) Forefoot Abducted Comments Posture Comments C-curve of spine with apex on left. PT-OP-K Range of Motion Start: 06/05/23 17:53 Freq: Status: Active Protocol: Document 06/11/23 13:47 LRN (Rec: 06/11/23 14:46 LRN [id number]) Lumbar Spine Range of Motion Lumbar Spine Active Degrees Testing Position Standing Flexion 80 Extension 3 Rotation Left 5 Rotation Right 10 Lateral Flexion Left 10 Lateral Flexion Right 7 Hip Goniometric Range of Motion Hip Right Passive Testing Position Supine Flexion w/Knee Flexed 80 Abduction 18 Internal Rotation 15 External Rotation 25 Comments R HETAL side Left Passive Testing Position Supine Flexion w/Knee Flexed 90 Abduction 10 Internal Rotation 0 External Rotation 45 PT-OP-M Strength Start: 06/05/23 17:53 Freq: Status: Active Protocol: Document 06/11/23 13:47 LRN (Rec: 06/11/23 14:46 LRN [id number]) Trunk Strength Trunk Manual Muscle Testing Core Stabilization 4/5 Hip Strength Hip Manual Muscle Testing Right Flexion (L2) 2+ Poor+ External Rotation 3 Fair Internal Rotation 4 Good Left Flexion (L2) 3- Fair- Internal Rotation 4 Good PT-OP-Q Treatments Start: 06/05/23 17:53 Freq: Status: Active Protocol: Document 09/14/23 11:27 LRN (Rec: 09/14/23 12:32 LRN [id number]) Therapeutic Exercises Supine Exercises L Piriformis stretch Side left Reps/Minutes 60 SH x 2 Comments Extra time taken to determine best positioning to decr anter groin pn w/ex L Hip Flexor stretch Supine Exercise Name Rafael Test position from side . Side left Reps/Minutes 60 SH x 2 extra time to determine best position to candy to stretch Comments Leg hanging off L side of plinth and R knee flexed up. R Hip ER stretch Supine Exercise Name BKFO Side right Reps/Minutes 10 SH x 10 Wedge: Roll in-out/Kegel Supine Exercise Name Wedge: Kegel/roll in-out/ normal breaths Equipment Used Wedge Reps/Minutes 8' Comments Cued on exhale w/roll out. Wedge: Roll in/out Supine Exercise Name Wedge/Legs on bolster - normal breath Reps/Minutes 8' Comments Better rectocele retract w/ exhale on roll outs Wedge: Breathing Supine Exercise Name Retraction of rectal tissue via positional posturing on wedge. Reps/Minutes 5' x 2 Comments 70% withdrawl into vaginal canal with positioning Self-Care/Home Management Treatment Activities Self-Care/Home Management Activities Issued & reviewed HEP: Hip stretches (L Ilipsoas & Piriformis, R hip ER) PT-OP-T Assessment and Plan Start: 06/05/23 17:53 Freq: Status: Active Protocol: Document 09/14/23 11:27 LRN (Rec: 09/14/23 12:32 LRN [id number]) Physical Therapy Assessment Goals Three Impairment Weak Posterior PF muscles affecting urinary leakage. Impairment strengthen muscles that are there to contol leakage. Short Term Goal (STG) Pt will gain awareness of posterior PF weakness and positions to limiting bulging of rectocele. 06/18/23: Educated pt in positions to limit rectocele bulging: not lift head or legs together, not hold breath and not tighten abs w/o tighening PF. 07/30/23: Pt was able to identify when rectocele extended beyond her vaginal opening in standing. STG Duration 2 wks-06/23/23 (07/30/23: MET GOAL) [facility] Goal (LTG) Pt will be able to coordinate breath with PF contractions to minimize vaginal vault prolapse and in sup w/hips elevated pt will be able to get vaginal tissues to retract using proper breathing technique. 08/21/23: Able to retract with initial assist 75%. 09/11/23: Able to retract 80% . LTG Duration 12 wks-10/28/23 progressing 09/11/23 Two Impairment Increased urinary leakage. Short Term Goal (STG) Pt will be educated in vulvar/ genital care. 07/30/23: Pt educated with handout issued. STG Duration 1 wk-06/19/23 (07/30/23: MET GOAL) Outside Deliverer Goal (LTG) Pt will be aware of voiding frequency and fluid input/ outputs to decrease worsening of urinary leakage. 07/30/23: Pt educated in norms for voiding frequency and fluid input/output recommendations. LTG Duration 8 wks-08/08/23 (07/30/23: MET GOAL) One Impairment Pt lacks appropriate self care HEP. Short Term Goal (STG) Education in proper methods for transfer with coordination of breathing, PF contractions . 06/18/23: Pt educated in transfer with breath and Kegels. STG Duration 06/18/23: MET GOAL [facility] Goal (LTG) Pt will be independent with a self care HEP of PF strengthening and hip ROM exercises. 06/18/23: I/S pt Hips Elevated ex's of <100% effort kegel and Glut squeeze, and transfers coordinating Kegel/ breathe. 08/21/23: HEP: BM massage for constipation. 09/14/23: HEP: Hip stretches (L Ilipsoas & Piriformis, R hip ER) LTG Duration 12 wks-10/28/23 progressed Assessment Summary Assessment Pt is a 67 yo female diagnosed with vaginal vault prolapse with surgery scheduled 11/04/23 . Today she attended with feeling of bulge from prolapse , pt was able to draw in prolapse 80% with ex and manual assist. Hip stretches did not appear to make prolapse worse (w/hips elevated). HEP progressed. Physical Therapy Plan Frequency and Duration Frequency of Treatment 1x/Week Duration of treatment (weeks) 12 Plan of Care Start Date 08/03/23 Plan of Care End Date 10/28/23 Next Visit Focus/Plan Next Note Type Treatment Note Next Visit Plan Next: Review Hip stretches, Issue Mat hip AD stretch and add HEP core stab type ex if able to do without increasing prolapse. Complete sacral balancing. Next: If core pressure managed start standing training for core pressure mgmt (posture training and PF ex -?standing hamstring stretch position) -HEP: I/S in supine LB stretch (to minimize bulge of rectocele), Hip general strengthening (w/core pressure mgmt). -Pt education and discussion in Urinary urge technique with handout if beneficial. (POC: Continue until surgery to improve/focus on self core pressure mgmt, strengthen PF and ex to improve symmetry of hip mobility and progression of HEP.)
--- NOTE | 2023-09-21 09:25 | PT.OTN ---
Current Diagnoses Stiffness of unspecified hip, not elsewhere classified (09/21/23) Muscle weakness (generalized) (09/21/23) Stress incontinence (female) (male) (09/21/23) Rectocele (09/21/23) Physical Therapy Treatment Note PT-OP-A Visit Information Start: 06/05/23 17:53 Freq: Status: Active Protocol: Document 09/21/23 08:23 LRN (Rec: 09/21/23 09:25 LRN [id number]) Out-Patient Physical Therapy Visit Information Visit Information Visit Type Treatment Note Visit Note 4 after PN. Rectocele repair surgery rescheduled November 05, 2023. Visit Start Time 08:23 Visit Stop Time 09:04 Visit Number 13 Evaluation Information Evaluation Date 06/11/23 Precautions Precautions Severe rectocele stage 4. Per intake form: R HETAL after Cystocele repair 15 yrs ago, 2019 Gall bladder removed, reported sporadic dizziness episodes and LOB w/o fall. PT-OP-B Current Condition Start: 06/05/23 17:53 Freq: Status: Active Protocol: Document 06/11/23 13:47 LRN (Rec: 06/11/23 14:46 LRN [id number]) Current Condition History of Current Condition Onset Date 6 months ago, History of Current Condition Has had urinary leakage for past 6 month that has worsened in the past 3 month. She thinks she may have been having cystocele, but was told she had a rectocele, not cystocele; therefore sent to therapy. She is being referred to gynocologist for rectal repair, referral appt 06/25/23. Prior Treatments and Tests Cystocele repair 15 yrs ago w/ hyste before that and R HETAL replacement afterward. Future Testing and Treatments Planned Feels her L hip needs a replacement but is getting rectocele addressed first. Treatment Goals Patient/Caregiver Goals Pt goal is to decrease rectocele, pt agreeable to HEP . Personal Factors Other Personal Factors That May Effect Having sporadic episodes of Therapy/Recovery dizziness and LOB. PT-OP-C Subjective Start: 06/05/23 17:53 Freq: Status: Active Protocol: Document 09/21/23 08:23 LRN (Rec: 09/21/23 09:25 LRN [id number]) OP-PT Subjective Patient Comments Patient Comments States she did pretty well over the holiday, managed her prolapse by lying down. PT-OP-I Pelvic Floor Start: 06/05/23 17:53 Freq: Status: Active Protocol: Document 06/11/23 13:47 LRN (Rec: 06/11/23 14:46 LRN [id number]) Pelvic Floor Assessment Urine Urinary Symptoms Prolapse,Falling Out Feeling/ Heavy Other Urinary Symptoms Urologist told her she was not completely emptying. Leakage Size Large Leakage Cause Urge Other Leakage Causes Walking to bathroom and leakage while sleeping Voiding Frequency 3x in AM, 3-4x in PM Nocturia 2-3 Pads Used In 24 Hours 1 daytime, 1 nighttime. Urine Pad Type Panty Liner Bowel Bowel Symptoms Constipation Bowel Movement Frequency 1 [place] Stool Chart Comments Variable stool types. Prolapse Rectocele Grade 4 Prolapse Comments Pt rectocele bulging out ~5 cm from vaginal opening. Comments Pelvic Floor Comments Not able to assess PF contractibility and strength due to severity of cystocele. Further bulging with each PF contraction while on a wedge. PT-OP-J Posture/Palpation/Skin Start: 06/05/23 17:53 Freq: Status: Active Protocol: Document 06/11/23 13:47 LRN (Rec: 06/11/23 14:46 LRN [id number]) Posture Evaluation Position Standing T-Spine Posture Increased Kyphosis L-Spine Posture Decreased Lordosis Shoulder Posture (L) Elevated Ankle/Foot Posture (L) Calcaneal Inversion,(L) Forefoot Abducted Comments Posture Comments C-curve of spine with apex on left. PT-OP-K Range of Motion Start: 06/05/23 17:53 Freq: Status: Active Protocol: Document 06/11/23 13:47 LRN (Rec: 06/11/23 14:46 LRN [id number]) Lumbar Spine Range of Motion Lumbar Spine Active Degrees Testing Position Standing Flexion 80 Extension 3 Rotation Left 5 Rotation Right 10 Lateral Flexion Left 10 Lateral Flexion Right 7 Hip Goniometric Range of Motion Hip Right Passive Testing Position Supine Flexion w/Knee Flexed 80 Abduction 18 Internal Rotation 15 External Rotation 25 Comments R HETAL side Left Passive Testing Position Supine Flexion w/Knee Flexed 90 Abduction 10 Internal Rotation 0 External Rotation 45 PT-OP-M Strength Start: 06/05/23 17:53 Freq: Status: Active Protocol: Document 06/11/23 13:47 LRN (Rec: 06/11/23 14:46 LRN [id number]) Trunk Strength Trunk Manual Muscle Testing Core Stabilization 4/5 Hip Strength Hip Manual Muscle Testing Right Flexion (L2) 2+ Poor+ External Rotation 3 Fair Internal Rotation 4 Good Left Flexion (L2) 3- Fair- Internal Rotation 4 Good PT-OP-Q Treatments Start: 06/05/23 17:53 Freq: Status: Active Protocol: Document 09/21/23 08:23 LRN (Rec: 09/21/23 09:25 LRN [id number]) Therapeutic Exercises Supine Exercises Hip AD stretch Supine Exercise Name BKFO - symmetrical mvmt- limited by L hip Side bilateral Equipment Used Wedge R Hip ER stretch Supine Exercise Name BKFO Side left Reps/Minutes 5 SHx 2 Wedge: Kegel/Ball squeeze Supine Exercise Name Retraction rectal tissues on wedge & ex: drawing up/in with exhale>ball sqz Equipment Used Wedge, ball Reps/Minutes 8' Comments Cued on breathing based on bulge of rectal tissues. Wedge: Roll in/out Supine Exercise Name Wedge/Legs on bolster - normal breath Equipment Used Wedge Reps/Minutes 6' Comments Better rectocele retract w/ exhale on roll outs Wedge: Kegel/Glut squeeze Supine Exercise Name Kegel/BKFO (drawing up/in rectal tissue w/exhale) Equipment Used Wedge, Lev 2 TB Reps/Minutes 5 SH x 8' Comments Good rectal tissue retraction into vaginal canal Wedge: Breathing Supine Exercise Name Retraction of rectal tissue via positional posturing on wedge w/&w/o asst. Equipment Used Wedge Reps/Minutes 5' x 2 Comments 70% withdrawl into vaginal canal w/positioning 100% w/ asst Standing Exercises Rectal repositioning Standing Exercise Name Standing hamstring stretch position & leaning fwd onto support Equipment Used wall & plinth Reps/Minutes 3' Comments V cuing given but held pt performing due to her not wearing her fem jock. Self-Care/Home Management Treatment Activities Self-Care/Home Management Activities Issued & reviewed HEP: Core stab w/Kegel: 1) Breathe, 2) towel roll squeeze 3) TB knee out, 4) single BKFO; Standing Hamstring stretch position for rectal prolapse repositioning, w/instructions for trying also leaning fwd on stable surface with hips above knees. PT-OP-T Assessment and Plan Start: 06/05/23 17:53 Freq: Status: Active Protocol: Document 09/21/23 08:23 LRN (Rec: 09/21/23 09:25 LRN [id number]) Physical Therapy Assessment Goals Three Impairment Weak Posterior PF muscles affecting urinary leakage. Impairment strengthen muscles that are there to contol leakage. Short Term Goal (STG) Pt will gain awareness of posterior PF weakness and positions to limiting bulging of rectocele. 06/18/23: Educated pt in positions to limit rectocele bulging: not lift head or legs together, not hold breath and not tighten abs w/o tighening PF. 07/30/23: Pt was able to identify when rectocele extended beyond her vaginal opening in standing. STG Duration 2 wks-06/23/23 (07/30/23: MET GOAL) Shelter Goal (LTG) Pt will be able to coordinate breath with PF contractions to minimize vaginal vault prolapse and in sup w/hips elevated pt will be able to get vaginal tissues to retract using proper breathing technique. 08/21/23: Able to retract with initial assist 75%. 09/11/23: Able to retract 80% . LTG Duration 12 wks-10/28/23 progressing 09/11/23 One Impairment Pt lacks appropriate self care HEP. Short Term Goal (STG) Education in proper methods for transfer with coordination of breathing, PF contractions . 06/18/23: Pt educated in transfer with breath and Kegels. STG Duration 06/18/23: MET GOAL Welder Setter Resistance Machine Goal (LTG) Pt will be independent with a self care HEP of PF strengthening and hip ROM exercises. 06/18/23: I/S pt Hips Elevated ex's of <100% effort kegel and Glut squeeze, and transfers coordinating Kegel/ breathe. 08/21/23: HEP: BM massage for constipation. 09/14/23: HEP: Hip stretches (L Ilipsoas & Piriformis, R hip ER) 09/21/23: HEP: Core stab w/ Kegel: 1) Breathe, 2) towel roll squeeze 3) TB knee out, 4 ) single BKFO; Standing Hamstring stretch position for rectal prolapse repositioning , w/instructions for trying also leaning fwd on stable surface with hips above knees. LTG Duration 12 wks-10/28/23 progressed Assessment Summary Assessment Pt is a 67 yo female diagnosed with vaginal vault prolapse with surgery scheduled 11/04/23 . Today, was able to get prolapse completely retracted when on wedge and manual assist. At end of ex pt prolapse bulge mild. Pt did not have femme jock, but she felt prolapse was managed. Held standing ex due to pt did not have on femme jock to keep prolapse supported. Physical Therapy Plan Frequency and Duration Frequency of Treatment 1x/Week Duration of treatment (weeks) 12 Plan of Care Start Date 08/03/23 Plan of Care End Date 10/28/23 Next Visit Focus/Plan Next Note Type Treatment Note Next Visit Plan Next: Review (& if pt has femme jock on check for prolapse) standing hip AD stretch, other hip stretches and core stab type ex (add HEP : Kegel/bridge if able to do without increasing prolapse). Complete sacral balancing. If core pressure managed start standing training for core pressure mgmt (posture training and PF ex) -HEP: I/S in supine LB stretch (to minimize bulge of rectocele), Hip general strengthening (w/core pressure mgmt). -Pt education and discussion in Urinary urge technique with handout if beneficial. (POC: Continue until surgery to improve/focus on self core pressure mgmt, strengthen PF and ex to improve symmetry of hip mobility and progression of HEP.)
--- NOTE | 2023-10-02 15:02 | PT.OTN ---
Current Diagnoses Stiffness of unspecified hip, not elsewhere classified (10/02/23) Muscle weakness (generalized) (10/02/23) Stress incontinence (female) (male) (10/02/23) Rectocele (10/02/23) Physical Therapy Treatment Note PT-OP-A Visit Information Start: 06/05/23 17:53 Freq: Status: Active Protocol: Document 10/02/23 13:45 LRN (Rec: 10/02/23 15:02 LRN [id number]) Out-Patient Physical Therapy Visit Information Visit Information Visit Type Treatment Note Visit Start Time 13:45 Visit Stop Time 14:30 Visit Number 14 Evaluation Information Evaluation Date 06/11/23 Precautions Precautions Severe rectocele stage 4. Per intake form: R HETAL after Cystocele repair 15 yrs ago, 2019 Gall bladder removed, reported sporadic dizziness episodes and LOB w/o fall. PT-OP-B Current Condition Start: 06/05/23 17:53 Freq: Status: Active Protocol: Document 06/11/23 13:47 LRN (Rec: 06/11/23 14:46 LRN [id number]) Current Condition History of Current Condition Onset Date 6 months ago, History of Current Condition Has had urinary leakage for past 6 month that has worsened in the past 3 month. She thinks she may have been having cystocele, but was told she had a rectocele, not cystocele; therefore sent to therapy. She is being referred to gynocologist for rectal repair, referral appt 06/25/23. Prior Treatments and Tests Cystocele repair 15 yrs ago w/ hyste before that and R HETAL replacement afterward. Future Testing and Treatments Planned Feels her L hip needs a replacement but is getting rectocele addressed first. Treatment Goals Patient/Caregiver Goals Pt goal is to decrease rectocele, pt agreeable to HEP . Personal Factors Other Personal Factors That May Effect Having sporadic episodes of Therapy/Recovery dizziness and LOB. PT-OP-C Subjective Start: 06/05/23 17:53 Freq: Status: Active Protocol: Document 10/02/23 13:45 LRN (Rec: 10/02/23 15:02 LRN [id number]) OP-PT Subjective Patient Comments Patient Comments States she feels something hanging down. Hip is bothering her today. Patient Questionnaires Pelvic Pain and Urgency/Frequency Patient Symptom Scale Pelvic Pain Score 14 PT-OP-I Pelvic Floor Start: 06/05/23 17:53 Freq: Status: Active Protocol: Document 06/11/23 13:47 LRN (Rec: 06/11/23 14:46 LRN [id number]) Pelvic Floor Assessment Urine Urinary Symptoms Prolapse,Falling Out Feeling/ Heavy Other Urinary Symptoms Urologist told her she was not completely emptying. Leakage Size Large Leakage Cause Urge Other Leakage Causes Walking to bathroom and leakage while sleeping Voiding Frequency 3x in AM, 3-4x in PM Nocturia 2-3 Pads Used In 24 Hours 1 daytime, 1 nighttime. Urine Pad Type Panty Liner Bowel Bowel Symptoms Constipation Bowel Movement Frequency 1 [place] Stool Chart Comments Variable stool types. Prolapse Rectocele Grade 4 Prolapse Comments Pt rectocele bulging out ~5 cm from vaginal opening. Comments Pelvic Floor Comments Not able to assess PF contractibility and strength due to severity of cystocele. Further bulging with each PF contraction while on a wedge. PT-OP-J Posture/Palpation/Skin Start: 06/05/23 17:53 Freq: Status: Active Protocol: Document 06/11/23 13:47 LRN (Rec: 06/11/23 14:46 LRN [id number]) Posture Evaluation Position Standing T-Spine Posture Increased Kyphosis L-Spine Posture Decreased Lordosis Shoulder Posture (L) Elevated Ankle/Foot Posture (L) Calcaneal Inversion,(L) Forefoot Abducted Comments Posture Comments C-curve of spine with apex on left. PT-OP-K Range of Motion Start: 06/05/23 17:53 Freq: Status: Active Protocol: Document 06/11/23 13:47 LRN (Rec: 06/11/23 14:46 LRN [id number]) Lumbar Spine Range of Motion Lumbar Spine Active Degrees Testing Position Standing Flexion 80 Extension 3 Rotation Left 5 Rotation Right 10 Lateral Flexion Left 10 Lateral Flexion Right 7 Hip Goniometric Range of Motion Hip Right Passive Testing Position Supine Flexion w/Knee Flexed 80 Abduction 18 Internal Rotation 15 External Rotation 25 Comments R HETAL side Left Passive Testing Position Supine Flexion w/Knee Flexed 90 Abduction 10 Internal Rotation 0 External Rotation 45 PT-OP-M Strength Start: 06/05/23 17:53 Freq: Status: Active Protocol: Document 06/11/23 13:47 LRN (Rec: 06/11/23 14:46 LRN [id number]) Trunk Strength Trunk Manual Muscle Testing Core Stabilization 4/5 Hip Strength Hip Manual Muscle Testing Right Flexion (L2) 2+ Poor+ External Rotation 3 Fair Internal Rotation 4 Good Left Flexion (L2) 3- Fair- Internal Rotation 4 Good PT-OP-Q Treatments Start: 06/05/23 17:53 Freq: Status: Active Protocol: Document 10/02/23 13:45 LRN (Rec: 10/02/23 15:02 LRN [id number]) Therapeutic Exercises Supine Exercises Hip AD stretch Supine Exercise Name L hip traction for stretch Side bilateral Equipment Used Wedge L Piriformis stretch Side left Reps/Minutes 60 SH x 2 Comments Extra time taken to determine best positioning to decr anter groin pn w/ex L Hip Flexor stretch Supine Exercise Name Rafael Test position from side , f/b SL bridge x 10 Side left Reps/Minutes 60 SH x 2 extra time to determine best position to candy to stretch Comments Leg hanging off L side of plinth and R knee flexed up. R Hip ER stretch Supine Exercise Name BKFO Side left Reps/Minutes 5 SHx 2 Wedge/Bridge Supine Exercise Name See hip flexor stretch Wedge: Kegel/Ball squeeze Supine Exercise Name Retraction rectal tissues on wedge & ex: drawing up/in with exhale>ball sqz Equipment Used Wedge, ball Reps/Minutes 8' Comments Cued on breathing based on bulge of rectal tissues. Wedge: Breathing Supine Exercise Name Retraction of rectal tissue via positional posturing on wedge w/&w/o asst. Equipment Used Wedge Reps/Minutes 5' x 2 Comments 70% withdrawl into vaginal canal w/positioning 100% w/ asst PT-OP-T Assessment and Plan Start: 06/05/23 17:53 Freq: Status: Active Protocol: Document 10/02/23 13:45 LRN (Rec: 10/02/23 15:02 LRN [id number]) Physical Therapy Assessment Goals Three Impairment Weak Posterior PF muscles affecting urinary leakage. Impairment strengthen muscles that are there to contol leakage. Short Term Goal (STG) Pt will gain awareness of posterior PF weakness and positions to limiting bulging of rectocele. 06/18/23: Educated pt in positions to limit rectocele bulging: not lift head or legs together, not hold breath and not tighten abs w/o tighening PF. 07/30/23: Pt was able to identify when rectocele extended beyond her vaginal opening in standing. STG Duration 2 wks-06/23/23 (07/30/23: MET GOAL) Longterm Goal (LTG) Pt will be able to coordinate breath with PF contractions to minimize vaginal vault prolapse and in sup w/hips elevated pt will be able to get vaginal tissues to retract using proper breathing technique. 08/21/23: Able to retract with initial assist 75%. 09/11/23: Able to retract 80% . 10/02/23: Pt retraction 80%, and w/asssit 95% retraction. LTG Duration 12 wks-10/28/23 (10/02/23: MET GOAL to minimize prolapse) Two Impairment Increased urinary leakage. Short Term Goal (STG) Pt will be educated in vulvar/ genital care. 07/30/23: Pt educated with handout issued. STG Duration 1 wk-06/19/23 (07/30/23: MET GOAL) Department Mgr Goal (LTG) Pt will be aware of voiding frequency and fluid input/ outputs to decrease worsening of urinary leakage. 07/30/23: Pt educated in norms for voiding frequency and fluid input/output recommendations. LTG Duration 8 wks-08/08/23 (07/30/23: MET GOAL) One Impairment Pt lacks appropriate self care HEP. Short Term Goal (STG) Education in proper methods for transfer with coordination of breathing, PF contractions . 06/18/23: Pt educated in transfer with breath and Kegels. STG Duration (06/18/23: MET GOAL) Department Mgr Goal (LTG) Pt will be independent with a self care HEP of PF strengthening and hip ROM exercises. 06/18/23: I/S pt Hips Elevated ex's of <100% effort kegel and Glut squeeze, and transfers coordinating Kegel/ breathe. 08/21/23: HEP: BM massage for constipation. 09/14/23: HEP: Hip stretches (L Ilipsoas & Piriformis, R hip ER) 09/21/23: HEP: Core stab w/ Kegel: 1) Breathe, 2) towel roll squeeze 3) TB knee out, 4 ) single BKFO; Standing Hamstring stretch position for rectal prolapse repositioning , w/instructions for trying also leaning fwd on stable surface with hips above knees. 10/02/23: Pt I/S as home ex: for rectal prolapse retraction of: exhale/PF contract > Glut squeeze > Hip AB LTG Duration 12 wks-10/28/23 (10/02/23: MET GOAL) Assessment Summary Assessment Pt is a 67 yo female diagnosed with vaginal vault prolapse with corrective surgery scheduled 11/04/23. The pt has improved in the coordination of PF contractions and can now draw her vaginal tissue up and in with breath and PF contraction, although with fatigue she becomes less coordinated, resulting in outward push of core pressure on the PF. The pt is limited with L hp mobility due to hip pain; therefore pelvic asymmetry is present. Hip and core strengthening was held due to poor core pressure mgmt with strengthening and tightening of core. If PF weakness is present post- surgically we would be happy to work with this pleasant individual again. Physical Therapy Plan Discharge Physical Therapy Discharge Reasons Goals Met Discharge Comments Pt attends with vaginal tissues external of vaginal canal, but with positioning and ex and assist is able to 95% retract tissues into vaginal canal. The pt appears to have a good understanding through exercise on reducing her core pressure to avoid bearing down with functional activities and ADLs. I will be leaving for 3 wks and will return the week of pt surgery; therefore pt is being discharged today to her HEP. Thank you for your referral.
== END 2024-06-21 11:21 | disposition home or self-care (01) ==
LOC: PHYS 13:45
PROVIDERS: Family Provider Family Medicine; PCP Family Medicine; Referring Provider Urology; Visit Provider Urology
DX: N39.3 Stress incontinence (female) (male) (principal); N81.6 Rectocele; M25.659 Stiffness of unspecified hip, not elsewhere classified; M62.81 Muscle weakness (generalized)
CPT/HCPCS: 97110; 97112; 97140; 97162; 97530; 97535

== ENCOUNTER → 2024-08-04 09:41 | Outpatient (CLI) | payer MEDICARE, OTHER, SELFPAY ==
[2024-08-04 10:23] LABS: Add Manual Diff / Slide Review NO; Basophils Absolute Auto 100 /uL (0-100); Basophils Percent Auto 0.7 % (0-2); Eosinophils Absolute Auto 200 /uL (0-450); Hematocrit 39.9 % (36-46); Hemoglobin 13.5 g/dL (12.0-16.0); Lymphocytes Absolute Auto 1700 /uL (1100-4500); Lymphocytes Percent Auto 21.3 % (25-40); Mean Corpuscular HGB Conc 33.9 % (30-36); Mean Corpuscular Hemoglobin 30.1 PG (26-34); Mean Corpuscular Volume 88.5 fL (80-100); Monocytes Absolute Auto 1000 /uL (0-900); Monocytes Percent Auto 12.4 % (3-14); Neutrophils Absolute Auto 5000 /uL (1500-7000); Neutrophils Percent Auto 63.6 % (50-75); Platelet Count 194 X10^3/uL (150-400); Red Blood Cell Count 4.51 X10^6/uL (4.0-5.2); Red Cell Distribution Width 12.3 % (11.6-14.8); White Blood Cell Count 7.8 X10^3/uL (4.5-11.0)
[2024-08-04 10:25] LABS: Hemoglobin A1C% w Est Avg Glu 4.9 % (4.0-6.0)
--- NOTE | 2024-08-04 10:26 | EKG_ITS ---
[address] [address] Test Date: 2024-08-04 Pat Name: Debby Valdez Department: [facility] Room: Gender: Female Desizing Machine Offbearer: DEEPA : 1955 Requested By: Order Number: [id number] Reading MD: Colin Berg Measurements Intervals [place] Rate: 66 P: 36 WI: 136 QRS: 43 QRSD: 82 T: 50 QT: 378 QTc: 396 Interpretive Statements Normal sinus rhythm Low voltage QRS Septal infarct , age undetermined Electronically Signed On 08-05-2024 19:07:45 PDT by Colin Berg
[2024-08-04 10:43] LABS: BUN Creatinine Ratio 25.6 (6-22); Blood Urea Nitrogen 21 mg/dL (7-17); Calcium 9.4 mg/dL (8.4-10.2); Carbon Dioxide 26 mmol/L (22-32); Chloride 106 mmol/L (98-107); Estimated Glomerular Filt Rate > 60 mL/min (>60); Glucose 88 mg/dL (70-99); HEMOLYSIS < 15 (0-50); Potassium 4.4 mmol/L (3.4-5.1); Sodium 139 mmol/L (137-145)
[2024-08-04 10:46] LABS: Appearance Urine UA CLEAR; Bilirubin Urine UA NEGATIVE (NEGATIVE); Color Urine UA YELLOW; Glucose Urine UA NEGATIVE (Negative); Ketones Urine UA TRACE (NEGATIVE); Leukocyte Esterase Urine UA 1+ (NEGATIVE); Nitrite Urine UA NEGATIVE (Negative); Occult Blood Urine UA NEGATIVE (Negative); Protein Urine UA NEGATIVE (Negative); Specific Gravity Urine UA 1.025 (1.000-1.035); Urobilinogen Urine UA 0.2 E.U./dL (0.2)
[2024-08-04 10:47] LABS: Urine Volume 10mL (spun); pH Urine UA 5.5 (4.5-8.0)
[2024-08-04 10:50] LABS: Bacteria Urine Moderate (10-30); RBC Urine None Seen (0-5/HPF); Squamous Epithelial Cell Urine 1-5 /HPF (0-5/HPF); WBC Urine 5-10/HPF (0-5/HPF)
== END ==
PROVIDERS: Family Provider Family Medicine; PCP Family Medicine; Referring Provider Orthopaedic Surgery; Visit Provider Orthopaedic Surgery
DX: Z01.818 Encounter for other preprocedural examination (principal); R73.9 Hyperglycemia, unspecified; Z01.812 Encounter for preprocedural laboratory examination; N39.0 Urinary tract infection, site not specified
CPT/HCPCS: 36415; 80048; 81001; 83036; 85025; 93005

== ENCOUNTER 2024-10-04 08:09 | Day surgery (SDC) | payer MEDICARE, OTHER, SELFPAY ==
[2024-09-26 09:45] VITALS: BMI 27.4
[2024-10-04] VITALS (12 sets, daily range): BP systolic 107–145; BP diastolic 49–90; PULSE 75–95; RESP 8–22; TEMP 36–36.9; O2SAT 97–100; BMI 27.1
--- NOTE | 2024-10-04 | DI.RAD.S_ITS ---
PROCEDURE: XR HIP W PEL IF DONE LT 2V INDICATIONS: TOTAL LEFT HIP TECHNIQUE: AP pelvis with lateral view(s) of the left hip. Digital image from the OR COMPARISON: None. FINDINGS: Bones: There are no osseous abnormalities. SI and hip joints: Left total hip prosthesis is anatomically aligned. Older right hip prostheses is incompletely imaged but appears grossly normal alignment Soft tissues: No soft tissue swelling, calcification or mass. IMPRESSION: Left total hip prosthesis in anatomic position Dictated by: Gunnar Grajeda M.D. on 10/05/2024 at 13:33 Approved by: Gunnar Grajeda M.D. on 10/05/2024 at 13:34
--- NOTE | 2024-10-04 06:56 | DI.RAD.S_ITS ---
PROCEDURE: XR HIP W PEL IF DONE LT 2V INDICATIONS: total left hip TECHNIQUE: AP pelvis and lateral view of the hip acquired. COMPARISON: [facility], CR, XR HIP W PEL LT 2V, 10/04/2024, 13:23. [facility], CR, XR PELVIS WITH LATERAL HIP LEFT, 08/03/2024, 17:17. FINDINGS: Bones: Patient is status post left hip arthroplasty, with hardware components in expected positions. The hip joint appears congruent. The visualized bony structures appear intact. Prior right hip arthroplasty hardware is again seen. Soft tissues: Overlying postoperative changes are noted. No suspicious soft tissue densities. IMPRESSION: Expected post-operative appearance of a hip arthroplasty. Dictated by: Nathen Zhou M.D. on 10/04/2024 at 15:02 Approved by: Nathen Zhou M.D. on 10/04/2024 at 15:02
[2024-10-04] MEDS: CELECOXIB 200 MG CAPSULE PO (09:33)
[2024-10-04] MEDS: VANCOMYCIN 1,000 MG in SODIUM CHLORIDE 0.9% 250 ML 250 MG IV (10:15)
--- NOTE | 2024-10-04 11:47 | P.OP_ITS ---
Operative Date/Time/Diagnoses Date of procedure: 10/04/24 Time of procedure: 11:50 Pre-op diagnosis: Left hip OA Post-op diagnosis: same Procedure & Clinicians Procedure: Left total hip arthroplasty anterior approach Same procedure(s) as scheduled: Yes Indications: The patient has had progressively worsening left hip pain with radiographic c hanges consistent with arthritis. Non-operative management has failed and the patient has requested total hip replacement. The risks, benefits and alternatives to surgery were discussed with the patient prior to proceeding. Risks discussed included, but were not limited to, failure to relieve pain, leg length discrepancy, dislocation, stiffness, infection, nerve damage, deep venous thrombosis, pulmonary embolism, stroke, coma, heart attack, permanent paralysis and , as well as the potential need for eventual revision of the prosthetic. Surgeon: Janiya Becerra Demonstrator Sales: Abhay Turner Anesthesia Type: Spinal Operative Notes Findings: Severe left hip OA, adequate stability, Closure Type: primary Specimen(s): none sent Prosthetic devices, grafts, tissues, transplants, or devices: Becerra and Nephew R3 50, neutral poly liner,two 6.5 mm screws, polar stem standard offset size 2, Co Ch 36 by -3, Applied: none Estimated Blood Loss (mL): 250 Blood products transfused: none Procedure in detail: The patient was brought to the operating room. Patient was carefully positioned in the supine position. Time-out was performed and antibiotics were given. Anesthesia was induced. She was positioned in the on the table in order to allow hyperextension of the hip. The left lower extremity was prepped and draped in a standard sterile fashion. An anterior left hip incision was made 1 fingerbreadth lateral to the anterior superior iliac spine and extended distally towards the greater trochanter. Dissection was carried out through skin and subcutaneous tissues. Superficial hemostasis was achieved. The fascia over the tensor fascia willie was defined and incised with a knife. Two Allis clamps were used to grasp the fascia. Tensor fascia willie was retracted laterally. A gelpi retractor was placed. Dissection was carried out down along the neck. The circumflex vessels were carefully identified and cauterized with the Aqua Mantis. A PA was used during the procedure and was essential for intraoperative retraction and safe implantation of the components. There was good visualization of the femoral neck. A Cobra was placed superior to the neck and the gluteus fibers were carefully stripped from that superior aspect of the capsule. A 2nd retractor was placed along the inferior aspect of the neck. The rectus insertion along the capsule was partially released. A 3rd retractor that was then gently placed over the rim of the acetabulum under the rectus. Capsule was carefully incised and released from the intertrochanteric line circumferentially superior to the mid sagittal line and inferiorly to the mid sagittal line until the lesser trochanter was palpable. A tag stitch was placed both in the superior and inferior limb of the capsular insertion. Along the acetabulum capsule was also released up to the mid sagittal 12:00 position. A portion of the labrum was resected. A saw was used to perform an osteotomy at the level of the intertrochanteric line and the junction of the superior femoral neck leaving approximately 1 finger breath of residual inferior neck above the lesser trochanter. A 2nd cut was made along the femoral neck at the base of the head and a napkin ring of neck was removed. Corkscrew was placed in the femoral head and the head was removed without difficulty. Retractors were then repositioned around the acetabulum. Residual labrum was resected and additional osteophytes were rem wilson. A reamer that was 4 mm below the templated size was placed by hand in the acetabulum and it was reamed to centralize the acetabulum. It was then reamed up to 2 under the templated size and fluoroscopy was brought in to confirm the position of the reaming and depth of reaming. I reamed 1 under the anticipated size. A trial cup was placed and noted that it was appropriately sized and fluoroscopy confirmed position and depth. The component was open and inserted without difficulty fluoroscopic imaging was used to confirm that the cup had been adequately seated and was well positioned. It was further stabilized with 2 screws. Neutral poly liner was placed. The cup was tested and noted to be stable. Attention was then directed to the femur. The femur was gently hyperextended additional capsular release was performed as needed in order to allow adequate visualization of the proximal femur with elevation of the femur. Patient was placed in a hyperextended slightly adducted position with maximum external rotation. Box osteotome was used to check for any residual neck as well as sclerotic bone along the trochanter. [place] pepper was placed in the femur. Additional broaching was performed. Canal finder was used to determine the alignment of the canal and position. Size 1 broach was placed. The canal was then appropriately broached up to the templated size as long as there was a dequate stability of the broach and serial advancement of the broach without excessive impingement. Specific attention was directed at avoiding varus attempting to direct the distal aspect of the broach more anteriorly and avoiding excessive anteversion. Trial reduction showed acceptable range of motion, good stability, no posterior impingement, jehovah's witness of leg length and appropriate lateral shuck. I also hyperflexed the hip and checked that there was no impingement anteriorly and there was good stability with flexion, adduction and internal rotation. Marcaine and Exparel were injected. The stem was placed without difficulty. Repeat trial reduction and x-ray showed acceptable overall position, length, and no evidence of the femoral fracture. Final head was placed. Wound was meticul ously irrigated with normal saline. The hip was reduced and additional Exparel and Marcaine were injected. The capsule was closed with interrupted nonabsorbable sutures. The fascia of the tensor was closed with interrupted and running Vicryl. No drain was placed. Any tensor fascia willie muscle that appeared to be contused or injured which was a minimal amount was carefully resected. Capsule around the tensor was injected with Exparel and Marcaine. The skin was closed with barbed stitches for the subcutaneous tissue and skin. We also used surgical glue. The wound was dressed sterilely. Brief Betadine soak was also used and was meticulously irrigated with normal saline. Patient was transferred to recovery room in satisfactory condition. Complications: none Post-operative Condition: stable Disposition: Acute Care Plan for aftercare: The patient will be maintained on a standard total hip replacement protocol with weight bearing as tolerated and anterior hip precautions. The patient will receive Aspirin and sequential compression devices for DVT prophylaxis. The patient will be discharged home when safe for the home environment.
--- NOTE | 2024-10-04 11:47 | PM.PREOP ---
Pre-operative Note Interval Note History & Physical reviewed/Exam performed by Physician: Yes Changes to H&P: No
[2024-10-04] MEDS: CEFAZOLIN 2 GM/100 ML PREMIX 100 ML IV ×2 (12:10→21:30)
[2024-10-04] MEDS: TRANEXAMIC ACID 1,000 MG VIAL 1000 MG INJ ×2 (12:35→14:23)
--- NOTE | 2024-10-04 12:41 | SUR.OPER ---
Supine on padded [place] table with bilateral legs secured in padded positioning boots and suspended in positioning spars, operative leg (LEFT) in traction per surgeon. Head on one pillow. Arm on non-operative side secured on padded armboard <90 degrees abduction. LEFT arm on operative side padded and resting across chest then secured with tape over sheet. Padded perineal post in place per surgeon. Position approved by surgeon and anesthesia.
[2024-10-04] MEDS: BUPIVACAINE LIPOSOME 266 MG/20 ML VIAL INJ (13:20)
[2024-10-04] MEDS: BUPIVACAINE 0.25% W/ EPI 30 ML VIAL 60 ML INJ (13:21)
[2024-10-04] MEDS: LACTATED RINGERS 1,000 ML 100 ML IV (16:40)
[2024-10-04] MEDS: ACETAMINOPHEN 325 MG TABLET 650 MG PO ×2 (16:41→21:37)
[2024-10-04] MEDS: OXYCODONE IR 5 MG TABLET PO (16:41)
[2024-10-04] MEDS: IBUPROFEN 400 MG TABLET PO (16:42)
--- NOTE | 2024-10-04 18:21 | PC.NURSE ---
Assisted primary RN with in and out catheter patient. Bladder scan showing approx. 600 urine and patient was only able to void about 100cc. Patient tolerated well. Patient resting in bed, call light left within reach.
[2024-10-04] MEDS: ASPIRIN EC 81 MG TABLET PO (21:34)
[2024-10-04] MEDS: DOCUSATE 100 MG CAPSULE PO (21:34)
[2024-10-04] MEDS: ATORVASTATIN 20 MG TABLET 10 MG PO (21:35)
[2024-10-05 04:09] LABS: Hematocrit 32.6 % (36-46); Hemoglobin 11.7 g/dL (12.0-16.0)
[2024-10-05] MEDS: PANTOPRAZOLE DR 40 MG TABLET PO (05:23)
[2024-10-05] MEDS: OXYCODONE IR 5 MG TABLET PO ×3 (05:23→14:46)
[2024-10-05] MEDS: ACETAMINOPHEN 325 MG TABLET 650 MG PO ×2 (05:25→09:14)
[2024-10-05] MEDS: CEFAZOLIN 2 GM/100 ML PREMIX 100 ML IV (05:26)
[2024-10-05 08:32] VITALS: BP 113/57; PULSE 82; RESP 16; TEMP 36.3; O2SAT 99
[2024-10-05] MEDS: ASPIRIN EC 81 MG TABLET PO (08:32)
[2024-10-05] MEDS: DOCUSATE 100 MG CAPSULE PO (08:32)
[2024-10-05] MEDS: MELOXICAM 7.5 MG TABLET 15 MG PO (08:32)
--- NOTE | 2024-10-05 09:10 | PT.IIE ---
Current Diagnoses Unilateral primary osteoarthritis, left hip (10/04/24) Surgery Performed Operation Date: 10/04/24 10:45 Actual Procedures p Total Hip Arthroplasty, Anterior Approach(Left) - Janiya Becerra MD Surgical History (Last Updated 09/26/24 @ 10:16 by Keke Valentine, RN) H/O hernia repair (1957) H/O: hysterectomy (~1997) History of gynecologic surgery (2023) History of total right hip replacement (~2017) Hx of bladder repair surgery (~1999) Hx of cholecystectomy Medical History (Last Updated 09/26/24 @ 12:23 by Keke Valentine, JEOVANY) Anesthesia complication (2023) Elevated cholesterol GERD (gastroesophageal reflux disease) Melanoma in situ (~2021) Osteoarthritis Physical Therapy Inpatient Evaluation/Re-Eval M1 PT/OT-IP Prior Functional Status Start: 10/05/24 12:48 Freq: NEEDED Status: Active Protocol: Document 10/05/24 09:10 AB (Rec: 10/05/24 13:07 AB [id number]) Medical Review Prior Functional Status Medical History Yes Reviewed Communication able to make needs known Mobility and Gait pt stated that she was modified independent with all mobilities and was not using any AD for ambulation but stared using a SPC ~ 1-2 weeks ago due to hip pain Social History Household Members spouse,children Living Arrangements House Number of Floors ( Two Floors Floors) Number of Stairs To pt stays on main level of the house Enter/Railing? has 2 steps + 2 platform steps to enter the house Home Environment Standard Height Toilet,Walk in Shower Home Equipment Front Wheel Walker,Straight Cane,Raised Toilet Seat w/ Armrests,Shower Seat with Backrest,Hand Held Shower, Grab Bars In Shower M2 PT-IP Current Condition Start: 10/05/24 12:48 Freq: NEEDED Status: Active Protocol: Document 10/05/24 09:10 AB (Rec: 10/05/24 13:07 AB [id number]) Physical Therapy Current Condition Current Condition Evaluation Date 10/05/24 Treatment Diagnosis s/p L HETAL anterior; difficulty in walking Onset Date 10/04/24 M3 PT-IP Subjective Start: 10/05/24 12:48 Freq: NEEDED Status: Active Protocol: Document 10/05/24 09:10 AB (Rec: 10/05/24 13:07 AB [id number]) Subjective Physical Therapy Visit Type Type Initial Evaluation Visit Start Time 09:10 Visit Stop Time 10:50 Notes pt seen for split visits: 910 to 950 am and 1005 to 1050 am Number of ADVANCE AGENT Visits 0 Therapy Pain Assessment Pain When Pain Assessed At Rest Pain Present Pain Present Pain Reported Location Left Hip Intensity 2 Scale Used Numeric (0 - 10) Pain Behaviors Guarding Pain Management Apply Cold,Distraction,Modification of Treatment,Re- Techniques positioning,Timing of Activity with Medications M4 PT-IP Mobility and Gait Start: 10/05/24 12:48 Freq: NEEDED Status: Active Protocol: Document 10/05/24 09:10 AB (Rec: 10/05/24 13:07 AB [id number]) PT-Bed Mobility Assessment Supine to Sit Supine to Sit Maximum Assistance,1 Person Assistance Sit to Supine Sit to Supine Moderate Assistance,1 Person Assistance PT-Transfer Assessment Sit to and From Stand Sit to and from Contact Guard Assistance,1 Person Assistance,Use of Stand Upper Extremities Equipment Transfer Assistive Gait Belt,Front Wheeled Walker Device Orthotic/Prosthetic No Devices or Brace: Transfers Transfer Destination Bed,Toilet Transfer Technique ambulated Transfer Ability Level of Assist Contact Guard Assistance,1 Person Assistance,Use of Upper Extremities Comments Mobility Comments pt in bed and spouse in room. obtained PLOF and home setup. post-op folder provided and reviewed contents. educated pt and spouse regarding anterior hip precautions. BP: 114/54. supine to sit max A and max cues. educated spouse on how to assist pt. pt able to sit on EOB SBA. no c/o dizziness/lightheadedness. sit to stand CGA and step transfer to chair CGA and cues using FWW. positioned pt on the chair. call light and table placed within reach. checked back on pt after rounds meeting and agreed to do more PT. caregiver training conducted. educated spouse on how to use safety belt and how to assist pt. spouse was able to put safety belt on pt. pt requested to use the toilet. sit to stand from chair CGA and pt ambulated to the toilet using FWW CGA. CGA to min A for standing balance using FWW for support while pt completed hygiene care. pt ambulated towards the sink using FWW CGA and was able to maintain standing CGA while completing handwashing. pt ambulated to EOB CGA using FWW. pt completed si<>supine mod to max A and max cues for techniques. educated spouse on how to assist pt. pt completed again with spouse assist pt. pt sat on EOB and rested. sit to stand from EOB CGA and pt c/o feeling dizzy. step transfer to chair using FWW CGA. BP checked: 69/42 . reclined pt and nurse alerted. pt with (+) emesis. BP rechecked: 118/61. positioned pt on the chair. call light and table placed within reach. Gait Assessment Gait Gait Assistance Contact Guard Assist Required: Distance (Feet) 15 Able to Maintain Yes Weight Bearing Status During Gait Assistive Devices Assistive Device Gait Belt,Front Wheeled Walker Orthotic/Prosthetic No Devices or Brace: Gait Deviations General Gait Pattern Antalgic,Decreased Stride Length,Decreased Feet Clearance Factors Limiting Gait Function Factors Limiting Decreased Activity Tolerance,Decreased Strength, Gait Function Difficulty Following Directions,Limited Range of Motion ,Pain,Poor Balance,Poor Safety Awareness PT-Balance Assessment Sitting Balance and Reactions Static Sitting Normal Balance Ability Dynamic Sitting Good Balance Ability Standing Balance and Reactions Static Standing Good Balance Ability Dynamic Standing Fair Balance Ability Device Used FWW M5 PT-IP Objective Assessments Start: 10/05/24 12:48 Freq: NEEDED Status: Active Protocol: Document 10/05/24 09:10 AB (Rec: 10/05/24 13:07 AB [id number]) Orientation Orientation/Cognition Level of Alertness Alert Orientation Name,Place,Situation Language Function No Deficits Noted Ability Safety Awareness Understands Safety Issues Memory Description No Deficits Noted Gross Range of Motion Lower Extremity ROM Assessment Within Functional Limits Strength Lower Extremity Strength Assessment Left Impaired Hip 3-/5 Knee 4/5 Muscle Tone Muscle Tone WNL Yes M6 PT-IP Treatment Start: 10/05/24 12:48 Freq: NEEDED Status: Active Protocol: Document 10/05/24 09:10 AB (Rec: 10/05/24 13:07 AB [id number]) Physical Therapy Treatment Exercises Exercises Heel Slides Education Education Provided Precautions,Weight Bearing Status,Post-Op Packet,Safety M7 PT-IP Assessment and Plan Start: 10/05/24 12:48 Freq: NEEDED Status: Active Protocol: Document 10/05/24 09:10 AB (Rec: 10/05/24 13:07 AB [id number]) PT Summary Assessment and Plan Potential Rehabilitation Good Potential Status of Condition Evolving at Evaluation Summary Impairments Pain,ROM,Strength,Balance,Coordination,Sensation,Bed Mobility,Transfers,Gait,Activity Tolerance Assessment Summary pt is a 69 y/o F s/p L HETAL anterior approach POD 1. pt with L hip anterior precautions and is WBAT. pt requiring mod to max A for bed mobility, CGA for transfers and ambulation using FWW. caregiver training conducted but will need for training for ambulation and stairs. pt with orthostatic hypotension during PT session: 69/42 with c/o dizziness and (+) emesis limiting activity tolerance. will continue to assess progress . Goals Bed Mobility Goal Independent Transfer Goal Independent,Front Wheeled Walker Gait Goal Independent,Front Wheel Walker Gait Distance 200 Other Goals 2 steps using SPC + FILLING WINDER CGA 2 platform steps using FWW SBA Days to Meet Goals 5 Frequency of Treatment Frequency Of Twice a Day Treatment Treatment Plan Physical Therapy Bed Mobility Training,Transfer Training,Gait Training, Treatment Plan Therapeutic Exercise,Balance Retraining,Post Op Education,Discharge Planning,Hot or Cold Pack, Neuromuscular Re-ed,Coordination Retraining,Manual Therapy Precautions Anterior Hip No Hip Extension,No Hip External Rotation Precautions Weight Bearing Status Weight Bearing Weight Bear as Tolerated Status Allowed Weight LLE WBAT Bearing Amount ( enter % or #) (%) Recommendations To Nursing Amount of Assist 1 Person Assist Needed Discharge Recommendations PT Discharge Home with Assistance,Outpatient PT Recommendations Transportation Needs Private Vehicle at Discharge - PT assist 1
--- NOTE | 2024-10-05 10:40 | CM.DANOTE ---
Initial DCP Assessment Note Pt is a 69 yo female, resident of [place], now POD#1 from left HETAL by Dr Becerra PCP: Colin Espostio Payer: [facility] Reviewed chart, pt discussed in multidisciplinary rounds this morning. Therapy pending this morning. Pt has planned for home, DC order from Ortho has already been initiated this morning. Patient lives independently with family. No barriers identified at this time to patient's safe discharge home w/family to assist; close outpatient f/u recommended. Social work team will plan to follow clinical course closely in case any DC needs or concerns arise. NEAL Andrea Discharge Planning/Care Management CM Discharge Assessment Start: 10/04/24 09:09 Freq: Status: Active Protocol: Document 10/05/24 10:38 ADRIÁN (Rec: 10/05/24 10:39 ADRIÁN [id number]) Discharge Planning Assessment Assigned Discharge NEAL [place] [employer] DPOA/Assigned Robert Dyson Designee Name Contact Information [phone] Advance Directives? No History Provided By Patient,Medical Record Prior Living House Arrangements Household Members spouse,children Independent with ADL Yes 's Is patient alert and Yes oriented? Comment Independent Patient/Family OP PT Therapy Preference Comment Home Barriers to No Discharge Discharge Plan Home Transportation Family Arrangement Referrals Initiated None needed
[2024-10-05] MEDS: LACTATED RINGERS 500 ML 1000 ML IV (10:56)
[2024-10-05 11:55] VITALS: BP 130/55; PULSE 80; RESP 16; O2SAT 96
--- NOTE | 2024-10-05 12:48 | OT.IP.EVAL ---
Current Diagnoses Unilateral primary osteoarthritis, left hip (10/04/24) Surgery Performed Operation Date: 10/04/24 10:45 Actual Procedures p Total Hip Arthroplasty, Anterior Approach(Left) - Janiya Becerra MD Past Medical History (Last Updated 09/26/24 @ 12:23 by Keke Valentine, RN) Anesthesia complication (2023) Elevated cholesterol GERD (gastroesophageal reflux disease) Melanoma in situ (~2021) Osteoarthritis Surgical History (Last Updated 09/26/24 @ 10:16 by Keke Valentine RN) H/O hernia repair (1957) H/O: hysterectomy (~1997) History of gynecologic surgery (2023) History of total right hip replacement (~2017) Hx of bladder repair surgery (~1999) Hx of cholecystectomy Occupational Therapy Inpatient Evaluation/Re-Eval M1 PT/OT-IP Prior Functional Status Start: 10/05/24 12:48 Freq: NEEDED Status: Active Protocol: Document 10/05/24 09:10 AB (Rec: 10/05/24 13:07 AB [id number]) Medical Review Prior Functional Status Medical History Yes Reviewed Communication able to make needs known Mobility and Gait pt stated that she was modified independent with all mobilities and was not using any AD for ambulation but stared using a SPC ~ 1-2 weeks ago due to hip pain Social History Household Members spouse,children Living Arrangements House Number of Floors ( Two Floors Floors) Number of Stairs To pt stays on main level of the house Enter/Railing? has 2 steps + 2 platform steps to enter the house Home Environment Standard Height Toilet,Walk in Shower Home Equipment Front Wheel Walker,Straight Cane,Raised Toilet Seat w/ Armrests,Shower Seat with Backrest,Hand Held Shower, Grab Bars In Shower M1 PT/OT-IP Prior Functional Status Start: 10/05/24 12:58 Freq: NEEDED Status: Active Protocol: Document 10/05/24 12:48 CCC (Rec: 10/05/24 13:14 [facility] Desktop) Medical Review Prior Functional Status Communication I Activities of Daily Pt states needing assist for shoes and having more pain Living and IADL's during ADL and mobility needs. Social History Household Members spouse,children Living Arrangements House Number of Floors ( Two Floors Floors) Number of Stairs To Pt 2 steps and landing and another 2 steps. Pt able to Enter/Railing? stay on the main level and does not need to go downstairs. Home Environment Standard Height Toilet,Walk in Shower Home Equipment Front Wheel Walker,Straight Cane,Raised Toilet Seat w/ Armrests,Shower Seat with Backrest,Hand Held Shower, Relief Mate,Sock Aid,Grab Bars In Shower Additional Social Pt's to be house to assist her initially. History Comment M2 OT-IP Current Condition Start: 10/05/24 12:58 Freq: Status: Active Protocol: Document 10/05/24 12:48 [facility] (Rec: 10/05/24 13:14 [facility] Desktop) Occupational Therapy Current Condition Current Condition Evaluation Date 10/05/24 Treatment Diagnosis S/P L HETAL Anterior Diagnosis Onset Date 10/04/24 Post Operative Precautions Anterior Hip No Hip Extension,No Hip External Rotation Precautions Weight Bearing Status Weight Bearing Weight Bear as Tolerated Status M3 OT- IP Subjective and Pain Start: 10/05/24 12:58 Freq: Status: Active Protocol: Document 10/05/24 12:48 CCC (Rec: 10/05/24 13:14 [facility] Desktop) OT- Subjective Occupational Therapy Visit Type Type Initial Evaluation Visit Start Time 10:50 Visit Stop Time 12:48 Notes Pt seen from [id number] to [id number] Occupational Therapy Visit Comments Patient Comments Pt having low BP first session and able to talk about precautions for ADL needs. Second session BP better and able to have the pt get dressed. Patient/Caregiver TO go home. Goals OT Pain Assessment Pain When Pain Assessed During Mobility Pain Present Pain Present Pain Reported Location Left Hip Intensity 2 Scale Used Numeric (0 - 10) M4 OT- IP ADL's Start: 10/05/24 12:58 Freq: Status: Active Protocol: Document 10/05/24 12:48 CCC (Rec: 10/05/24 13:14 [facility] Desktop) OT [id number] General Evaluation Self-Feeding Ability Independent OT ADL-Grooming General Evaluation Grooming Ability Independent Comments OT Grooming Comments While seated. OT ADL-Oral Care General Eval Oral Care Ability Independent OT ADL-Dressing General Eval Upper Body Dressing Independent Ability Lower Body Dressing Minimal Assistance Ability Comments OT Dressing Comments Pt able to practice use of infectious diseases physician and sock aid. Pt needing assist to help slip her left shoe on at this time. Educated to dress the LLE first and take out last . OT ADL-Toileting Comments OT Toileting Suggested to get a BSC, be mindful of her hip Comments positioning while wiping, use of pads and wet ones. OT ADL-Bathing Comments OT Bathing Comments Spoke of care for dressing during showering needs. M5 OT- IP IADL's Start: 10/05/24 12:58 Freq: Status: Active Protocol: Document 10/05/24 12:48 [facility] (Rec: 10/05/24 13:14 [facility] Desktop) OT-Instrumental Activities of Daily Living Home Safety Awareness Awareness of Need Good Awareness for Assistance at Home Ability to Problem Able to Problem Solve Solve Emergency Situations Medication Management Medication No Deficits Identified Management Money Management Money Management Caregiver Provides Assistance Meal Preparation Meal Preparation Caregiver Provides Assist Bi Manager Bi Manager Caregiver Provides Assist M6 OT- IP Functional Cognition Start: 10/05/24 12:58 Freq: Status: Active Protocol: Document 10/05/24 12:48 [facility] (Rec: 10/05/24 13:14 [facility] Desktop) Cognitive Factors Limiting Selfcare Function Cognitive Ability Level of Alertness Alert Patient Orientation Name,Age,Birthday,Month,Date,Year,Day of Week,Place, Situation Attention Span Capable of Focused Attention,Capable of Sustained Ability Attention Ability to Follow Able to Follow One Step Commands Commands Memory Description No Deficits Noted Safety Awareness No Deficits Noted Cognitive Comments Cognitive Assessment Pt able to follow precaution for ADL and mobility needs Comments . Pt just needing reminders to slide her LLE forwards prior to sitting down. OT- Vision and Hearing OT- Hearing Assessment OT- Hearing WFL Assessment OT- Vision Assessment Visual Acuity Glasses All The Time Visual Attentiveness WFL Occular Pursuits WFL M7 OT- IP Mobility and Balance Start: 10/05/24 12:58 Freq: Status: Active Protocol: Document 10/05/24 12:48 [facility] (Rec: 10/05/24 13:14 [facility] Desktop) OT-Transfer Assessment Sit to and From Stand Sit to and from Standby Assistance Stand Comments Mobility Comments Pt able to come to stand for dressing need with FWW with SBA. BP sitting 118/47 and 134/58, standing 121/56 . OT- Balance Assessment Sitting Balance and Reactions Static Sitting Normal Balance Ability Dynamic Sitting Normal Balance Ability Standing Balance and Reactions Static Standing Good Balance Ability M8 OT- IP Objective Assessments Start: 10/05/24 12:58 Freq: Status: Active Protocol: Document 10/05/24 12:48 [facility] (Rec: 10/05/24 13:14 [facility] Desktop) OT Gross Range of Motion Upper Extremity Range of Motion Assessment Within Functional Limits OT Strength Upper Extremity Strength Assessment Within Functional Limits M9 OT- IP Assessment and Plan Start: 10/05/24 12:58 Freq: Status: Active Protocol: Document 10/05/24 12:48 [facility] (Rec: 10/05/24 13:14 [facility] Desktop) OT Summary Assessment and Plan Potential Rehabilitation Excellent Potential Analytic Complexity Low at Evaluation Summary OT Impairments Pain,Balance,Functional Mobility,Dressing,Toileting, Bathing,Toilet Transfers,Shower Transfers,Activity Tolerance Progress Towards Progressing Toward Goals Goals Assessment Summary Pt low complexity and main barriers are pain and steps. Pt able to practice use of LB dressing equipment to get dressed. Spoke of incorporating her precautions for car transfers and ADL needs. Pt to home with her and attend outpt PT. Goals Dressing Goal Independent Toileting Goal Independent Bathing Goal Independent Toilet Transfer Goal Independent Shower Transfer Goal Independent Days to Meet Goals 5 Frequency of Treatment Other frequency 5x/week Treatment Plan OT Treatment Plan ADL Training,Functional Mobility,Patient/Family Education,Discharge Planning Discharge Recommendations OT Discharge Home with Assistance,Outpatient PT Recommendations Home Equipment Needs BSC Transportation Needs Private Vehicle at Discharge
--- NOTE | 2024-10-05 13:15 | PT.IPTN ---
Current Diagnoses Unilateral primary osteoarthritis, left hip (10/04/24) Surgery Performed Operation Date: 10/04/24 10:45 Actual Procedures p Total Hip Arthroplasty, Anterior Approach(Left) - Janiya Becerra MD Physical Therapy Treatment Note M2 PT-IP Current Condition Start: 10/05/24 12:48 Freq: NEEDED Status: Discharge Protocol: Document 10/05/24 09:10 AB (Rec: 10/05/24 13:07 AB [id number]) Physical Therapy Current Condition Current Condition Evaluation Date 10/05/24 Treatment Diagnosis s/p L HETAL anterior; difficulty in walking Onset Date 10/04/24 M3 PT-IP Subjective Start: 10/05/24 12:48 Freq: NEEDED Status: Discharge Protocol: Document 10/05/24 13:15 AB (Rec: 10/05/24 16:14 AB [id number]) Subjective Physical Therapy Visit Type Type Treatment Note Visit Start Time 13:15 Visit Stop Time 13:55 Number of CHAIN CARRIER Visits 0 Physical Therapy Visit Comments Patient Comments agreeable to do PT M4 PT-IP Mobility and Gait Start: 10/05/24 12:48 Freq: NEEDED Status: Discharge Protocol: Document 10/05/24 13:15 AB (Rec: 10/05/24 16:14 AB [id number]) PT-Transfer Assessment Sit to and From Stand Sit to and from Contact Guard Assistance,1 Person Assistance,Use of Stand Upper Extremities Equipment Transfer Assistive Gait Belt,Front Wheeled Walker Device Orthotic/Prosthetic No Devices or Brace: Transfers Transfer Destination Toilet Transfer Technique ambulated Transfer Ability Level of Assist Minimal Assistance,1 Person Assistance,Use of Upper Extremities Comments Mobility Comments pt sitting on the chair and spouse in room. BP sitting checked: 123/79. no c/o dizziness/lightheadedness. Caregiver training conducted. spouse was able to put safety belt on pt, assisted pt with ambulation in the hallway using FWW CGA ~ 50 ft. stair climbing training: educated pt and spouse on how to complete stairs. pt completed up/down platform step using SPC+ GLOVE STITCHER mod to max A and cues and up/down platform step using FWW min A. pt completed initially with PT assist and cues and completed again with spouse assisting. assisted pt back to her room. sit to stand from w/c with spouse assisting and pt requested to use the toilet. pt ambulated to the toilet using FWW CGA. Left pt with spouse and NAC to assist. Gait Assessment Gait Gait Assistance Contact Guard Assist,1 Person Assist Required: Distance (Feet) 50 Able to Maintain Yes Weight Bearing Status During Gait Assistive Devices Assistive Device Gait Belt,Front Wheeled Walker Orthotic/Prosthetic No Devices or Brace: Gait Deviations General Gait Pattern Antalgic,Decreased Stride Length,Decreased Feet Clearance Factors Limiting Gait Function Factors Limiting Decreased Activity Tolerance,Decreased Strength,Limited Gait Function Range of Motion,Pain,Poor Balance,Poor Safety Awareness Stair Climbing Assessment Evaluation Level of Assist On Minimal Assistance,Moderate Assistance,Maximal Stairs Assistance,1 Person Assistance Devices Stair Climbing Straight Cane,Front Wheel Walker Assistive Devices Technique/Endurance Stair Climbing Ascend and Descend Direction Stair Climbing Step to Step Technique Number of Steps 1 Climbed Stair Climbing Set # 4 Repetitions (reps) Comments Stair Climbing pls refer to mobility section for details Comments M5 PT-IP Objective Assessments Start: 10/05/24 12:48 Freq: NEEDED Status: Discharge Protocol: Document 10/05/24 09:10 AB (Rec: 10/05/24 13:07 AB [id number]) Orientation Orientation/Cognition Level of Alertness Alert Orientation Name,Place,Situation Language Function No Deficits Noted Ability Safety Awareness Understands Safety Issues Memory Description No Deficits Noted Gross Range of Motion Lower Extremity ROM Assessment Within Functional Limits Strength Lower Extremity Strength Assessment Left Impaired Hip 3-/5 Knee 4/5 Muscle Tone Muscle Tone WNL Yes M6 PT-IP Treatment Start: 10/05/24 12:48 Freq: NEEDED Status: Discharge Protocol: Document 10/05/24 13:15 AB (Rec: 10/05/24 16:14 AB [id number]) Physical Therapy Treatment Education Education Provided Safety M7 PT-IP Assessment and Plan Start: 10/05/24 12:48 Freq: NEEDED Status: Discharge Protocol: Document 10/05/24 13:15 AB (Rec: 10/05/24 16:14 AB [id number]) PT Summary Assessment and Plan Potential Rehabilitation Good Potential Summary Impairments Pain,ROM,Strength,Balance,Coordination,Sensation,Tone, Cognition,Bed Mobility,Transfers,Gait,Activity Tolerance Progress Towards Slow Progress due to Pain,Slow Progress due to Activity Goals Tolerance Assessment Summary caregiver training completed and spouse was able to assist pt safely. pt able to complete transfers, ambulation using FWW CGA and stairs with spouse assistance providing mod to max A of GLOVE STITCHER and use of SPC and also able to complete using FWW min A. pt plans to go home and has out pt PT set up. Goals Bed Mobility Goal Independent Transfer Goal Independent,Front Wheeled Walker Gait Goal Independent,Front Wheel Walker Gait Distance 200 Other Goals 2 steps using SPC + GLOVE STITCHER CGA 2 platform steps using FWW SBA Days to Meet Goals 5 Frequency of Treatment Frequency Of Twice a Day Treatment Treatment Plan Physical Therapy Bed Mobility Training,Transfer Training,Gait Training, Treatment Plan Therapeutic Exercise,Balance Retraining,Post Op Education,Discharge Planning,Hot or Cold Pack, Neuromuscular Re-ed,Coordination Retraining,Manual Therapy Precautions Anterior Hip No Hip Extension,No Hip External Rotation Precautions Weight Bearing Status Weight Bearing Weight Bear as Tolerated Status Allowed Weight LLE WBAT Bearing Amount ( enter % or #) (%) Recommendations To Nursing Amount of Assist 1 Person Assist Needed Discharge Recommendations PT Discharge Home with Assistance,Outpatient PT Recommendations Transportation Needs Private Vehicle at Discharge - PT assist 1
--- NOTE | 2024-10-05 14:59 | PC.NURSE ---
Moe d/c teaching with patient an spouse at bedside. All questions and concerns address. RX's sent to [facility] in [place]. Patient states understaning of d/c teaching. States f/u appt w/ Dr. Becerra's office next . IV removed by [employer] ACCOUNT EXECUTIVE, escorted down to private vehicle via WC. Patient leaves in stable condition A&O x4
--- NOTE | 2024-10-05 20:39 | P.DS_ITS ---
History of Present Illness History of Present Illness Date Patient Seen: 10/05/24 Time Patient Seen: 07:40 Chief complaint: OPB Left HETAL anterior Narrative: Patient had a left total hip arthroplasty anterior approach. She tolerated the procedure well. She did have some difficulty voiding initially and required a straight cath. She had an episode of hypotension earlier in the day but it responded well to a bolus. She did well with physical therapy. Discharge Providers Provider Discharge Date: 10/05/24 Primary care physician: Colin Esposito MD Consults: 09/26/24 10:39 Consult to Anesthesiology Routine Comment: Consulting Provider: Anesthesiologist Reason for consultation: Surgeon requested re: Lightweight with anesthesia 10/04/24 06:56 Consult to Anesthesiology Routine Comment: Consulting Provider: Anesthesiologist Reason for consultation: Regional block for post operative pain control Has provider been notified: No 10/04/24 16:10 Consult to Discharge Planning Routine Comment: Consult to Occupational Therapy Evaluate & Treat Comment: Physician Instructions: Evaluate and treat Consult to Physical Therapy Evaluate & Treat Comment: Physician Instructions: post op HETAL protocol Discharge provider: Janiya Becerra MD Summary Hospital Course Discharge Diagnosis: Left total hip arthroplasty. Hospital Course: Placed as a outpatient bed with observation. She had difficulty voiding and required 1 straight cath. She had an episode of hypotension which responded well to a bolus of 500 cc. She then did well with physical therapy and felt to be safe for discharge. Status at Discharge Cognitive/behavioral status at discharge: oriented Functional status at discharge: uses cane/walker Overall status at discharge: patient is progressing back to baseline Time Spent with Patient Time spent: Less than 30 minutes Exam Vital Signs (past 8 hours): Oxygen Delivery Method Room Air Oxygen Flow Rate 0 Narrative Exam Narrative: Comfortable in bed, dressing is dry, minimal pain with range of motion in the hip, calf soft distally, neurologically intact distally minimal pain Objective Labs 10/05/24 03:40 Labs: Laboratory Results - last 24 hr 10/05/24 03:40 Hgb 11.7 L Hct 32.6 L PFSH Medical History Elevated cholesterol Melanoma in situ (~2021) Osteoarthritis GERD (gastroesophageal reflux disease) Anesthesia complication (2023) Surgical History History of total right hip replacement (~2018) Hx of bladder repair surgery (~1999) H/O: hysterectomy (~1997) History of gynecologic surgery (2023) H/O hernia repair (1957) Hx of cholecystectomy Social History household members: spouse and children Smoking Status: Never smoker alcohol intake: current Discharge Assessment & Plan Assessment and Plan Assessment: Doing well postoperatively Plan of Treatment: Stable for discharge. Discharge Plan Discharge Plan Patient Disposition: Home Discharge orders & Medications Discharge Orders: Discharge (Order); Ordered 10/05/24 Ordered By: Janiya Becerra Prescriptions: New polyethylene glycol 3350 17 gram Powder In Packet 17 gm PO DAILY PRN (Reason: Constipation) Qty: 14 0RF aspirin 81 mg Tablet,Delayed Release (Dr/Ec) 81 mg PO BID Qty: 90 0RF oxycodone 5 mg Tablet 5 mg PO Q3H PRN (Reason: Pain, Moderate (4-6)) Qty: 30 0RF Continued simvastatin 20 mg tablet 20 mg PO BEDTIME meloxicam 15 mg tablet 15 mg PO DAILY pantoprazole 40 mg tablet,delayed release (DR/EC) 40 mg PO QAM metronidazole 0.75 % cream 1 applic topical BID acetaminophen 500 mg capsule 1,000 mg PO BID PRN (Reason: pain) mupirocin 2 % ointment 1 applic topical Follow up/Referrals: Colin Esposito MD [Primary Care Provider, [facility]] Diet/Activity/Treatments Diet: Diet as Tolerated Activity: Walk multiple times a day. Use a cane or walker as needed. Cold/Heat Therapy: Use ice multiple times a day. Other treatments: Elevate your foot as needed for leg swelling. Skin/Wound/Dressing Care Skin care: Okay to shower. Report to your healthcare provider any signs of infection, such as:: chills, fever, night sweats, increased pain, unusual drainage and unusual redness Dressing: Leave dressing on. Visit Report/Discharge Packet Instructions: DI for Hip Replacement, How to Prevent Falls, DI for Prescription Opioid Use, Oxycodone, Aspirin Stand Alone Forms: Patient Portal/API, Surgery Discharge Print Language: [place]i Discharge Data Primary Care Provider: Colin Esposito Attending Provider: Janiya Becerra VTE Deep Vein Thrombosis/Pulmonary Embolism Present on Admission: No
== END 2024-10-05 14:58 | disposition home or self-care (01) ==
LOC: OR 08:11 → AC 08:12
PROVIDERS: Family Provider Family Medicine; PCP Family Medicine; Referring Provider Family Medicine; Visit Provider Orthopaedic Surgery
PROC: (CPT 27130; principal; 2024-10-04 10:45)
DX: M16.12 Unilateral primary osteoarthritis, left hip (principal); M25.752 Osteophyte, left hip
CPT/HCPCS: 27130; 36415; 72170; 73502; 76000; 85014; 85018; 97162; 97165; 97530; 97535; C1776; J0666; J0690; J2250; J2704; J3010